=== PATIENT | male | born 1980 | race African-American/Black ===

== ENCOUNTER 2016-08-22 11:35 | Emergency (ER) | payer OTHER ==
[~2016-08-22] VITALS: Ht 172.7 cm; Wt 68.5 kg
[~2016-08-22 11:35] MED LIST: AUGMENTIN875 MG PO; DEPAKOTE; DEPAKOTE ER (E500 MG PO; DEPAKOTE ER500 MG PO; DEPAKOTE500 MG PO; KEPPRA250 MG PO; KEPPRA500 MG PO; LIBRIUM25 MG PO; NOHOMEMEDS; TYLENOL WITH C1 EACH PO
[2016-08-22 15:53] LABS: HEMATOCRIT 40.3 % (38.0-50.0); MCH 31.2 PG (29.0-34.0); MCHC 35.7 G/DL (30.0-36.0); MCV 87.2 FL (86-99); MEAN PLAT.VOLUME 8.7 uM^3 (9.0-12.4); PLATELET COUNT 285 K/uL (156-360); RBC DIS.WIDTH-CV 14.3 % (11.8-14.6); RBC DIS.WIDTH-SD 44.1 % (39-53); RED BLOOD COUNT 4.62 M/uL (4.00-5.50)
[2016-08-22 16:02] LABS: CHLORIDE 105 mEq/L (99-109); POTASSIUM 3.6 mEq/L (3.7-5.4); SODIUM 139 mEq/L (136-147)
[2016-08-22 16:03] LABS: AMYLASE 46 IU/L (1-118)
[2016-08-22 16:04] LABS: GLUCOSE 93 mg/dL (70-99)
[2016-08-22 16:05] LABS: ANION GAP 12 MEQ/L (2-14)
[2016-08-22 16:06] LABS: TOTAL BILIRUBIN 0.5 mg/dL (0.0-1.0)
[2016-08-22 16:07] LABS: ALKALINE PHOSPHATASE 63 IU/L (3-129); SERUM ETHYL ALCOHOL < 10 mg/dL
[2016-08-22 16:08] LABS: GFR ESTIMATE (CALCULATED) > 59 mL/min/
[2016-08-22 16:09] LABS: UREA NITROGEN (BUN) 9 mg/dL (9-23)
[2016-08-22 16:11] LABS: LIPASE 22 U/L (1.0-51.0)
[2016-08-22] MEDS ORDERED: KEPPRA500 MG PO (16:44)
[2016-08-22] MEDS ORDERED: THIAMINE HCL100 MG PO (16:45)
[2016-08-22] MEDS ORDERED: ATIVAN2 MG PO (16:45)
[2016-08-22 17:09] VITALS: BP 136/93
== END 2016-08-22 17:12 | disposition home or self-care (01) ==
LOC: EME 11:35 → RME 11:35
PROVIDERS: Physician Assistant
DX: R56.9 Unspecified convulsions (principal); Z76.0 Encounter for issue of repeat prescription; F10.239 Alcohol dependence with withdrawal, unspecified; I10 Essential (primary) hypertension; Z87.820 Personal history of traumatic brain injury; F17.200 Nicotine dependence, unspecified, uncomplicated
CPT/HCPCS: 80053; 82150; 83690; 85027; 99281; 99284; G0480; J2060; J2405; J7030

== ENCOUNTER 2016-09-03 02:49 | Inpatient (IN) | payer OTHER ==
[~2016-09-03] VITALS: Ht 172.7 cm; Wt 65.3 kg
[~2016-09-03 02:49] MED LIST changes: +ATIVAN2 MG PO; +THIAMINE HCL100 MG PO
[2016-09-03] MEDS ORDERED: ZOFRAN4 MG PO (03:14)
[2016-09-03 03:33] LABS: HEMATOCRIT 41.3 % (38.0-50.0); MCH 31.5 PG (29.0-34.0); MCHC 36.6 G/DL (30.0-36.0); MCV 86.2 FL (86-99); MEAN PLAT.VOLUME 8.5 uM^3 (9.0-12.4); PLATELET COUNT 277 K/uL (156-360); RBC DIS.WIDTH-CV 14.5 % (11.8-14.6); RBC DIS.WIDTH-SD 45.1 % (39-53); RED BLOOD COUNT 4.79 M/uL (4.00-5.50); WHITE BLOOD COUNT 5.1 K/uL (4.1-10.2)
[2016-09-03 03:43] LABS: CHLORIDE 104 mEq/L (99-109); POTASSIUM 3.6 mEq/L (3.7-5.4); SODIUM 140 mEq/L (136-147)
[2016-09-03 03:44] LABS: GLUCOSE 110 mg/dL (70-99)
[2016-09-03 03:46] LABS: ANION GAP 16 MEQ/L (2-14)
[2016-09-03 03:48] LABS: GFR ESTIMATE (CALCULATED) > 59 mL/min/; SERUM ETHYL ALCOHOL 367 mg/dL
[2016-09-03 03:49] LABS: UREA NITROGEN (BUN) 5 mg/dL (9-23)
[2016-09-03 03:50] LABS: AMPHETAMINE NEGATIVE (500 ng/mL); BARBITURATES NEGATIVE (200 ng/mL); BENZODIAZEPINES NEGATIVE (150 ng/mL); COCAINE NEGATIVE (150 ng/mL); METHADONE NEGATIVE (200 ng/mL); METHAMPHETAMINE NEGATIVE (500 ng/mL); OPIATES (MORPHINE) NEGATIVE (100 ng/mL); OXYCODONE NEGATIVE (100 ng/mL); PHENCYCLIDINE NEGATIVE (25 ng/mL); PROPOXYPHENE NEGATIVE (300 ng/mL); THC CANNABINOIDS NEGATIVE (50 ng/mL); TRICYCLIC ANTIDEPRESSANTS NEGATIVE (300 ng/mL)
[2016-09-03 03:51] LABS: INTERNAL CONTROLS VALID? YES
[2016-09-03] MEDS ORDERED: LORAZEPAM2 MG PO (16:11)
[2016-09-03] MEDS ORDERED: THIAMINE HCL100 MG PO (16:12)
[2016-09-03] MEDS ORDERED: DEPAKOTE500 MG PO (19:55)
[2016-09-03 21:29] VITALS: BP 134/99
[2016-09-04 07:49] VITALS: BP 143/93
[2016-09-04 15:34] VITALS: BP 142/96
[2016-09-05 07:53] VITALS: BP 142/90
[2016-09-05 15:34] VITALS: BP 134/92
[2016-09-06 09:18] VITALS: BP 131/88
[2016-09-06 15:08] VITALS: BP 109/72
[2016-09-07 07:34] VITALS: BP 117/74
[2016-09-07] MEDS ORDERED: DIVALPROEX SOD500 MG PO (10:37)
[2016-09-07] MEDS ORDERED: LEVETIRACETAM500 MG PO (10:37)
== END 2016-09-07 12:33 | disposition home or self-care (01) | DRG 881 ==
LOC: EME → EDBD 02:49 → EDOF 16:24 → 1WEST 16:24
PROVIDERS: Emergency Medicine
DX: F32.9 Major depressive disorder, single episode, unspecified (principal); F10.239 Alcohol dependence with withdrawal, unspecified; F10.229 Alcohol dependence with intoxication, unspecified; Y90.8 Blood alcohol level of 240 mg/100 ml or more; I10 Essential (primary) hypertension; G40.909 Epilepsy, unspecified, not intractable, without status epilepticus; R45.851 Suicidal ideations
CPT/HCPCS: 80048; 85027; 90837; 97150 GO; 97165 GO; 99281; 99285; G0480

== ENCOUNTER 2016-09-13 22:38 | Inpatient (IN) | payer OTHER ==
[~2016-09-13] VITALS: Ht 182.9 cm; Wt 65.7 kg
[~2016-09-13 22:38] MED LIST changes: +DIVALPROEX SOD500 MG PO; +LEVETIRACETAM500 MG PO; +LORAZEPAM2 MG PO; +ZOFRAN4 MG PO
[2016-09-13 23:10] LABS: ADD MIUA? YES; BILIRUBIN NEGATIVE; BLOOD SMALL; COLOR YELLOW ((YELLOW)); GLUCOSE (STRIP) NEGATIVE; KETONES 5; LEUKOCYTES NEGATIVE; NITRITE NEGATIVE; PROTEIN (STRIP) 30; SPECIFIC GRAVITY 1.008 (1.000-1.030); UROBILINOGEN 0.2 MG/DL (0.2-1.0)
[2016-09-13 23:15] LABS: HEMATOCRIT 45.1 % (38.0-50.0); MCHC 35.9 G/DL (30.0-36.0); MCV 86.4 FL (86-99); MEAN PLAT.VOLUME 8.8 uM^3 (9.0-12.4); PLATELET COUNT 360 K/uL (156-360); RBC DIS.WIDTH-CV 14.3 % (11.8-14.6); RBC DIS.WIDTH-SD 45.4 % (39-53); RED BLOOD COUNT 5.22 M/uL (4.00-5.50); WHITE BLOOD COUNT 6.1 K/uL (4.1-10.2)
[2016-09-13 23:20] LABS: BACTERIA NONE SEEN /HPF; EPITHELIAL CELLS RARE /HPF; MUCUS TRACE /LPF; RED BLOOD CELLS 0-5 /HPF (0-5); UCUL ADDED? NO; WHITE BLOOD CELLS 0-5 /HPF (0-5)
[2016-09-13 23:21] LABS: AMPHETAMINE NEGATIVE (500 ng/mL); BARBITURATES NEGATIVE (200 ng/mL); BENZODIAZEPINES PRESUMPTIVE POSITIVE (150 ng/mL); COCAINE NEGATIVE (150 ng/mL); INTERNAL CONTROLS VALID? YES; METHADONE NEGATIVE (200 ng/mL); METHAMPHETAMINE NEGATIVE (500 ng/mL); OPIATES (MORPHINE) NEGATIVE (100 ng/mL); OXYCODONE NEGATIVE (100 ng/mL); PHENCYCLIDINE NEGATIVE (25 ng/mL); PROPOXYPHENE NEGATIVE (300 ng/mL); THC CANNABINOIDS NEGATIVE (50 ng/mL); TRICYCLIC ANTIDEPRESSANTS NEGATIVE (300 ng/mL)
[2016-09-13 23:22] LABS: ADD MEDTOX COMMENT Y
[2016-09-13 23:27] LABS: CHLORIDE 106 mEq/L (99-109); POTASSIUM 3.5 mEq/L (3.7-5.4); SODIUM 141 mEq/L (136-147)
[2016-09-13 23:29] LABS: GLUCOSE 92 mg/dL (70-99)
[2016-09-13 23:30] LABS: ANION GAP 14 MEQ/L (2-14)
[2016-09-13 23:32] LABS: SERUM ETHYL ALCOHOL 283 mg/dL
[2016-09-13 23:33] LABS: GFR ESTIMATE (CALCULATED) > 59 mL/min/
[2016-09-13 23:34] LABS: UREA NITROGEN (BUN) 4 mg/dL (9-23)
[2016-09-14 05:34] LABS: BENZODIAZEPINES QUANT VALUE 0 NG/ML
[2016-09-14 05:49] LABS: BENZODIAZEPINES, URINE SCREEN Negative (200 ng/mL)
[2016-09-14] MEDS ORDERED: LORAZEPAM2 MG PO (07:26)
[2016-09-14 09:26] VITALS: BP 145/92
[2016-09-14 15:29] VITALS: BP 125/81
[2016-09-15 07:58] VITALS: BP 150/75
[2016-09-15 11:44] VITALS: BP 125/58
[2016-09-15 15:36] VITALS: BP 118/73
[2016-09-16 07:52] VITALS: BP 124/87
[2016-09-16 15:45] VITALS: BP 135/84
[2016-09-17 07:47] VITALS: BP 127/85
[2016-09-17] MEDS ORDERED: CITALOPRAM HBR10 MG PO (09:52)
== END 2016-09-17 11:47 | disposition home or self-care (01) | DRG 881 ==
LOC: EME 22:38 → 1WEST 09-14 06:25 → EDOF 09-14 06:25 → 1WEST 09-14 09:22
PROVIDERS: Emergency Medicine
DX: F32.9 Major depressive disorder, single episode, unspecified (principal); G40.909 Epilepsy, unspecified, not intractable, without status epilepticus; F10.220 Alcohol dependence with intoxication, uncomplicated; Y90.8 Blood alcohol level of 240 mg/100 ml or more; R45.851 Suicidal ideations; I10 Essential (primary) hypertension
CPT/HCPCS: 72070; 80048; 80164; 81003; 84999; 85027; 90837; 97150 GO; 97166 GO; 99281; 99285; G0480

== ENCOUNTER 2016-10-02 22:35 | Emergency (ER) | payer OTHER ==
[~2016-10-02] VITALS: Ht 175.3 cm; Wt 65.8 kg
[~2016-10-02 22:35] MED LIST changes: +CITALOPRAM HBR10 MG PO
[2016-10-02 23:25] LABS: HEMATOCRIT 42.2 % (38.0-50.0); MCH 31.3 PG (29.0-34.0); MCHC 34.8 G/DL (30.0-36.0); MEAN PLAT.VOLUME 8.8 uM^3 (9.0-12.4); PLATELET COUNT 311 K/uL (156-360); RBC DIS.WIDTH-CV 13.2 % (11.8-14.6); RBC DIS.WIDTH-SD 43.7 % (39-53); RED BLOOD COUNT 4.69 M/uL (4.00-5.50)
[2016-10-02 23:34] LABS: CHLORIDE 105 mEq/L (99-109); POTASSIUM 3.6 mEq/L (3.7-5.4); SODIUM 140 mEq/L (136-147)
[2016-10-02 23:37] LABS: GLUCOSE 93 mg/dL (70-99)
[2016-10-02 23:38] LABS: ANION GAP 13 MEQ/L (2-14); TOTAL BILIRUBIN 0.4 mg/dL (0.0-1.0)
[2016-10-02 23:39] LABS: SERUM ETHYL ALCOHOL 303 mg/dL
[2016-10-02 23:40] LABS: GFR ESTIMATE (CALCULATED) > 59 mL/min/
[2016-10-02 23:41] LABS: ALKALINE PHOSPHATASE 47 IU/L (3-129)
[2016-10-02 23:42] LABS: UREA NITROGEN (BUN) 7 mg/dL (9-23)
[2016-10-02 23:44] LABS: SALICYLATE < 5.0 MG/DL (15-30)
[2016-10-03 06:19] LABS: BILIRUBIN NEGATIVE; BLOOD NEGATIVE; COLOR YELLOW ((YELLOW)); GLUCOSE (STRIP) NEGATIVE; KETONES 5; LEUKOCYTES NEGATIVE; NITRITE NEGATIVE; PROTEIN (STRIP) NEGATIVE; SPECIFIC GRAVITY 1.021 (1.000-1.030); UROBILINOGEN 0.2 MG/DL (0.2-1.0)
[2016-10-03 06:20] LABS: ADD MIUA? NO; UCUL ADDED? NO
[2016-10-03 06:31] LABS: THC CANNABINOIDS PRESUMPTIVE POSITIVE (50 ng/mL)
[2016-10-03 06:32] LABS: ADD MEDTOX COMMENT Y; AMPHETAMINE NEGATIVE (500 ng/mL); BARBITURATES NEGATIVE (200 ng/mL); BENZODIAZEPINES PRESUMPTIVE POSITIVE (150 ng/mL); COCAINE NEGATIVE (150 ng/mL); INTERNAL CONTROLS VALID? YES; METHADONE NEGATIVE (200 ng/mL); METHAMPHETAMINE NEGATIVE (500 ng/mL); OPIATES (MORPHINE) NEGATIVE (100 ng/mL); OXYCODONE NEGATIVE (100 ng/mL); PHENCYCLIDINE NEGATIVE (25 ng/mL); PROPOXYPHENE NEGATIVE (300 ng/mL); TRICYCLIC ANTIDEPRESSANTS NEGATIVE (300 ng/mL)
[2016-10-03 07:11] LABS: BENZODIAZEPINES QUANT VALUE 0 NG/ML
[2016-10-03 07:16] LABS: BENZODIAZEPINES, URINE SCREEN Negative (200 ng/mL)
[2016-10-03 11:00] VITALS: BP 115/79
== END 2016-10-03 11:04 | disposition home or self-care (01) ==
LOC: EME → EDBD 22:35 → EME 22:35
PROVIDERS: Emergency Medicine
DX: F33.8 Other recurrent depressive disorders (principal); F10.229 Alcohol dependence with intoxication, unspecified; Y90.8 Blood alcohol level of 240 mg/100 ml or more; R45.851 Suicidal ideations; I10 Essential (primary) hypertension; G40.89 Other seizures; Z87.820 Personal history of traumatic brain injury; F12.10 Cannabis abuse, uncomplicated; F17.200 Nicotine dependence, unspecified, uncomplicated
CPT/HCPCS: 80053; 80164; 81003; 84999; 85027; 90839; 99281; 99285; G0480; J7030

== ENCOUNTER 2016-10-21 23:45 | Emergency (ER) | payer OTHER ==
[~2016-10-21] VITALS: Ht 172.7 cm; Wt 71.2 kg
[2016-10-22 00:35] LABS: CHLORIDE 104 mEq/L (99-109); POTASSIUM 3.6 mEq/L (3.7-5.4); SODIUM 140 mEq/L (136-147)
[2016-10-22 00:37] LABS: GLUCOSE 90 mg/dL (70-99)
[2016-10-22 00:37] LABS: HEMATOCRIT 38.1 % (38.0-50.0); MCH 32.5 PG (29.0-34.0); MCV 90.5 FL (86-99); RBC DIS.WIDTH-CV 13.2 % (11.8-14.6); RBC DIS.WIDTH-SD 44.1 % (39-53); RED BLOOD COUNT 4.21 M/uL (4.00-5.50)
[2016-10-22 00:38] LABS: ANION GAP 15 MEQ/L (2-14)
[2016-10-22 00:40] LABS: SERUM ETHYL ALCOHOL 323 mg/dL
[2016-10-22 00:41] LABS: GFR ESTIMATE (CALCULATED) > 59 mL/min/
[2016-10-22 00:43] LABS: UREA NITROGEN (BUN) 5 mg/dL (9-23)
[2016-10-22 00:44] LABS: SALICYLATE < 5.0 MG/DL (15-30)
[2016-10-22 00:46] LABS: AMPHETAMINE NEGATIVE (500 ng/mL); BARBITURATES NEGATIVE (200 ng/mL); BENZODIAZEPINES NEGATIVE (150 ng/mL); COCAINE NEGATIVE (150 ng/mL); INTERNAL CONTROLS VALID? YES; METHADONE NEGATIVE (200 ng/mL); METHAMPHETAMINE NEGATIVE (500 ng/mL); OPIATES (MORPHINE) NEGATIVE (100 ng/mL); OXYCODONE NEGATIVE (100 ng/mL); PHENCYCLIDINE NEGATIVE (25 ng/mL); PROPOXYPHENE NEGATIVE (300 ng/mL); THC CANNABINOIDS NEGATIVE (50 ng/mL); TRICYCLIC ANTIDEPRESSANTS NEGATIVE (300 ng/mL)
[2016-10-22 01:23] LABS: MEAN PLAT.VOLUME 8.9 uM^3 (9.0-12.4); PLAT.SUFFICIENCY ADEQUATE; PLATELET COUNT 204 K/uL (156-360)
[2016-10-22 11:41] VITALS: BP 115/77
== END 2016-10-22 11:41 | disposition home or self-care (01) ==
LOC: EME 23:45
PROVIDERS: Emergency Medicine
DX: F32.9 Major depressive disorder, single episode, unspecified (principal); F10.10 Alcohol abuse, uncomplicated; R45.851 Suicidal ideations; Y90.8 Blood alcohol level of 240 mg/100 ml or more; Z87.820 Personal history of traumatic brain injury; I10 Essential (primary) hypertension; R56.9 Unspecified convulsions; F17.200 Nicotine dependence, unspecified, uncomplicated
CPT/HCPCS: 80048; 85027; 90837; 99281; 99285; G0480; J1630; J2060

== ENCOUNTER 2016-11-05 21:52 | Emergency (ER) | payer OTHER ==
[~2016-11-05] VITALS: Ht 167.6 cm; Wt 68.0 kg
[2016-11-05 22:38] LABS: HEMATOCRIT 43.9 % (38.0-50.0); MCHC 35.3 G/DL (30.0-36.0); MCV 90.5 FL (86-99); MEAN PLAT.VOLUME 8.5 uM^3 (9.0-12.4); PLATELET COUNT 398 K/uL (156-360); RBC DIS.WIDTH-CV 12.8 % (11.8-14.6); RBC DIS.WIDTH-SD 42.3 % (39-53); RED BLOOD COUNT 4.85 M/uL (4.00-5.50); WHITE BLOOD COUNT 7.6 K/uL (4.1-10.2)
[2016-11-05 22:39] LABS: CHLORIDE 103 mEq/L (99-109); POTASSIUM 4.1 mEq/L (3.7-5.4); SODIUM 138 mEq/L (136-147)
[2016-11-05 22:41] LABS: AMPHETAMINE NEGATIVE (500 ng/mL); BARBITURATES NEGATIVE (200 ng/mL); BENZODIAZEPINES NEGATIVE (150 ng/mL); COCAINE NEGATIVE (150 ng/mL); INTERNAL CONTROLS VALID? YES; METHADONE NEGATIVE (200 ng/mL); METHAMPHETAMINE NEGATIVE (500 ng/mL); OPIATES (MORPHINE) NEGATIVE (100 ng/mL); OXYCODONE NEGATIVE (100 ng/mL); PHENCYCLIDINE NEGATIVE (25 ng/mL); PROPOXYPHENE NEGATIVE (300 ng/mL); THC CANNABINOIDS NEGATIVE (50 ng/mL); TRICYCLIC ANTIDEPRESSANTS NEGATIVE (300 ng/mL)
[2016-11-05 22:41] LABS: GLUCOSE 93 mg/dL (70-99)
[2016-11-05 22:42] LABS: ANION GAP 16 MEQ/L (2-14)
[2016-11-05 22:43] LABS: TOTAL BILIRUBIN 0.2 mg/dL (0.0-1.0)
[2016-11-05 22:44] LABS: SERUM ETHYL ALCOHOL 352 mg/dL
[2016-11-05 22:45] LABS: ALKALINE PHOSPHATASE 59 IU/L (3-129); GFR ESTIMATE (CALCULATED) > 59 mL/min/
[2016-11-05 22:47] LABS: UREA NITROGEN (BUN) 11 mg/dL (9-23)
[2016-11-05 22:48] LABS: SALICYLATE < 5.0 MG/DL (15-30)
[2016-11-06 08:39] VITALS: BP 98/64
== END 2016-11-06 08:52 | disposition home or self-care (01) ==
LOC: EME → EDBD 21:52 → EME 11-06 08:52
PROVIDERS: Emergency Medicine
DX: F10.229 Alcohol dependence with intoxication, unspecified (principal); F33.8 Other recurrent depressive disorders; F17.200 Nicotine dependence, unspecified, uncomplicated; Z59.0 Homelessness; Y90.8 Blood alcohol level of 240 mg/100 ml or more
CPT/HCPCS: 80053; 85027; 90837; 99281; 99285; G0480; J1630; J2060

== ENCOUNTER 2016-11-14 08:58 | Observation (INO) | payer OTHER ==
[~2016-11-14] VITALS: Ht 170.2 cm; Wt 60.5 kg
[2016-11-14 09:47] LABS: MCH 32.7 PG (29.0-34.0); MCHC 35.5 G/DL (30.0-36.0); MCV 92.2 FL (86-99); RBC DIS.WIDTH-CV 13.1 % (11.8-14.6); RBC DIS.WIDTH-SD 44.2 % (39-53); RED BLOOD COUNT 4.34 M/uL (4.00-5.50)
[2016-11-14 09:49] LABS: WHITE BLOOD COUNT 14.9 K/uL (4.1-10.2)
[2016-11-14 09:53] LABS: CHLORIDE 104 mEq/L (99-109); POTASSIUM 3.8 mEq/L (3.7-5.4); SODIUM 141 mEq/L (136-147)
[2016-11-14 09:55] LABS: GLUCOSE 115 mg/dL (70-99)
[2016-11-14 09:56] LABS: ANION GAP 18 MEQ/L (2-14)
[2016-11-14 09:58] LABS: SERUM ETHYL ALCOHOL 44 mg/dL
[2016-11-14 09:59] LABS: GFR ESTIMATE (CALCULATED) > 59 mL/min/
[2016-11-14 10:00] LABS: UREA NITROGEN (BUN) 5 mg/dL (9-23)
[2016-11-14 10:49] LABS: ANISOCYTOSIS 1+; EOSINOPHIL (%) 0 % (0-5); IMMATURE GRANULOCYTE (%) 0.7 % (0.0-0.7); IMMATURE GRANULOCYTE COUNT 0.1 K/uL; INSTRUMENT ABS NEUTROPHIL CT 13.7 K/uL; LYMPHOCYTE COUNT 0.4 K/uL (1.0-2.8); MACROCYTES 1+; MEAN PLAT.VOLUME 8.3 uM^3 (9.0-12.4); MONOCYTE (%) 4.6 % (3-12); MONOCYTE COUNT 0.7 K/uL (0-0.8); NEUTROPHIL COUNT 13.7 K/uL (1.8-6.4); PLAT.SUFFICIENCY ADEQUATE; STOMATOCYTES 1+; TARGET CELLS 1+
[2016-11-14 10:52] LABS: PLATELET COUNT 255 K/uL (156-360)
[2016-11-14 11:04] LABS: ADD MIUA? NO; BILIRUBIN NEGATIVE; BLOOD NEGATIVE; COLOR YELLOW ((YELLOW)); GLUCOSE (STRIP) NEGATIVE; KETONES 20; LEUKOCYTES NEGATIVE; NITRITE NEGATIVE; PROTEIN (STRIP) 30; SPECIFIC GRAVITY 1.015 (1.000-1.030); UROBILINOGEN 0.2 MG/DL (0.2-1.0)
[2016-11-14 11:12] LABS: AMPHETAMINE NEGATIVE (500 ng/mL); BARBITURATES NEGATIVE (200 ng/mL); BENZODIAZEPINES NEGATIVE (150 ng/mL); COCAINE NEGATIVE (150 ng/mL); INTERNAL CONTROLS VALID? YES; METHADONE NEGATIVE (200 ng/mL); METHAMPHETAMINE NEGATIVE (500 ng/mL); OPIATES (MORPHINE) NEGATIVE (100 ng/mL); OXYCODONE NEGATIVE (100 ng/mL); PHENCYCLIDINE NEGATIVE (25 ng/mL); PROPOXYPHENE NEGATIVE (300 ng/mL); THC CANNABINOIDS NEGATIVE (50 ng/mL); TRICYCLIC ANTIDEPRESSANTS NEGATIVE (300 ng/mL)
[2016-11-14 15:37] VITALS: BP 119/82
[2016-11-14 20:18] VITALS: BP 128/78
[2016-11-15 01:07] VITALS: BP 117/69
[2016-11-15 04:18] VITALS: BP 122/75
[2016-11-15 06:25] LABS: ANION GAP 10 MEQ/L (2-14); CHLORIDE 103 MEQ/L (99-109); GFR ESTIMATE (CALCULATED) > 59 mL/min/; GLUCOSE 100 mg/dL (70-99); POTASSIUM 3.2 MEQ/L (3.7-5.4); SAMPLE HEMOLYSIS CHECK 0; SAMPLE ICTERIC CHECK 0; SAMPLE LIPEMIA CHECK 0; SODIUM 137 MEQ/L (136-147); UREA NITROGEN (BUN) 4 mg/dL (9-23)
[2016-11-15 07:39] LABS: INTERNAL CONTROL VALID? YES
[2016-11-15 07:40] LABS: INTERNAL CONTROL VALID? YES
[2016-11-15 08:07] VITALS: BP 131/93
[2016-11-15 11:31] VITALS: BP 140/87
[2016-11-15] MEDS ORDERED: CEFDINIR300 MG PO (11:47)
== END 2016-11-15 12:10 | disposition home or self-care (01) ==
LOC: EME 08:58 → 5SOUTH 12:30 → EDOF 12:30 → 5SOUTH 12:30
PROVIDERS: Emergency Medicine; Hospitalist
DX: J13 Pneumonia due to Streptococcus pneumoniae (principal); F10.220 Alcohol dependence with intoxication, uncomplicated; F10.230 Alcohol dependence with withdrawal, uncomplicated; F32.9 Major depressive disorder, single episode, unspecified; G40.909 Epilepsy, unspecified, not intractable, without status epilepticus
CPT/HCPCS: 71010; 80048; 80048 91; 81003; 85025; 85027; 87040; 87070; 87205; 87449; 94640; 94640 76; 94799; 99202; 99281; 99285; G0378; G0480; J0456; J0696; J2060; J2405; J2765; J7030; J7050

== ENCOUNTER 2016-11-17 03:16 | Emergency (ER) | payer OTHER ==
[~2016-11-17] VITALS: Ht 167.6 cm; Wt 63.5 kg
[~2016-11-17 03:16] MED LIST changes: +CEFDINIR300 MG PO
[2016-11-17 04:03] LABS: ADD MIUA? NO; BILIRUBIN NEGATIVE; BLOOD NEGATIVE; COLOR STRAW ((YELLOW)); GLUCOSE (STRIP) NEGATIVE; KETONES NEGATIVE; LEUKOCYTES NEGATIVE; NITRITE NEGATIVE; PROTEIN (STRIP) NEGATIVE; SPECIFIC GRAVITY 1.006 (1.000-1.030); UCUL ADDED? NO; UROBILINOGEN 0.2 MG/DL (0.2-1.0)
[2016-11-17 04:16] LABS: AMPHETAMINE NEGATIVE (500 ng/mL); BARBITURATES NEGATIVE (200 ng/mL); BENZODIAZEPINES NEGATIVE (150 ng/mL); COCAINE NEGATIVE (150 ng/mL); INTERNAL CONTROLS VALID? YES; METHADONE NEGATIVE (200 ng/mL); METHAMPHETAMINE NEGATIVE (500 ng/mL); OPIATES (MORPHINE) NEGATIVE (100 ng/mL); OXYCODONE NEGATIVE (100 ng/mL); PHENCYCLIDINE NEGATIVE (25 ng/mL); PROPOXYPHENE NEGATIVE (300 ng/mL); THC CANNABINOIDS NEGATIVE (50 ng/mL); TRICYCLIC ANTIDEPRESSANTS NEGATIVE (300 ng/mL)
[2016-11-17 04:17] LABS: HEMATOCRIT 36.9 % (38.0-50.0); MCH 32.6 PG (29.0-34.0); MCHC 35.8 G/DL (30.0-36.0); MCV 91.1 FL (86-99); MEAN PLAT.VOLUME 8.8 uM^3 (9.0-12.4); PLATELET COUNT 238 K/uL (156-360); RBC DIS.WIDTH-CV 12.6 % (11.8-14.6); RED BLOOD COUNT 4.05 M/uL (4.00-5.50); WHITE BLOOD COUNT 5.8 K/uL (4.1-10.2)
[2016-11-17 04:22] LABS: CHLORIDE 106 mEq/L (99-109); POTASSIUM 3.1 mEq/L (3.7-5.4); SODIUM 142 mEq/L (136-147)
[2016-11-17 04:24] LABS: GLUCOSE 90 mg/dL (70-99)
[2016-11-17 04:25] LABS: ANION GAP 15 MEQ/L (2-14)
[2016-11-17 04:27] LABS: SERUM ETHYL ALCOHOL 268 mg/dL
[2016-11-17 04:28] LABS: GFR ESTIMATE (CALCULATED) > 59 mL/min/
[2016-11-17 04:29] LABS: UREA NITROGEN (BUN) 4 mg/dL (9-23)
[2016-11-17] MEDS ORDERED: LIBRIUM25 MG PO (12:13)
[2016-11-17] MEDS ORDERED: THIAMINE HCL100 MG PO (12:13)
[2016-11-17 12:27] VITALS: BP 122/86
== END 2016-11-17 12:28 | disposition home or self-care (01) ==
LOC: EME → EDBD 03:16 → EME 12:28
PROVIDERS: Emergency Medicine
DX: F10.239 Alcohol dependence with withdrawal, unspecified (principal); R45.851 Suicidal ideations; F17.210 Nicotine dependence, cigarettes, uncomplicated; F12.90 Cannabis use, unspecified, uncomplicated; I10 Essential (primary) hypertension; F32.9 Major depressive disorder, single episode, unspecified; Z91.5 Personal history of self-harm; J44.0 Chronic obstructive pulmonary disease with (acute) lower respiratory infection; J18.9 Pneumonia, unspecified organism; J45.909 Unspecified asthma, uncomplicated
CPT/HCPCS: 71010; 80048; 81003; 85027; 90839; 94640; 99281; 99285; G0480

== ENCOUNTER 2016-11-19 23:59 | Inpatient (IN) | payer OTHER ==
[~2016-11-19] VITALS: Ht 170.2 cm; Wt 64.4 kg
[2016-11-20 00:32] LABS: HEMATOCRIT 37.7 % (38.0-50.0); MCH 33.1 PG (29.0-34.0); MCHC 35.8 G/DL (30.0-36.0); MCV 92.4 FL (86-99); MEAN PLAT.VOLUME 8.8 uM^3 (9.0-12.4); PLATELET COUNT 276 K/uL (156-360); RBC DIS.WIDTH-CV 12.9 % (11.8-14.6); RED BLOOD COUNT 4.08 M/uL (4.00-5.50); WHITE BLOOD COUNT 6.6 K/uL (4.1-10.2)
[2016-11-20 00:45] LABS: CHLORIDE 105 mEq/L (99-109); POTASSIUM 3.4 mEq/L (3.7-5.4); SODIUM 140 mEq/L (136-147)
[2016-11-20 00:47] LABS: GLUCOSE 86 mg/dL (70-99)
[2016-11-20 00:48] LABS: ANION GAP 12 MEQ/L (2-14)
[2016-11-20 00:49] LABS: TOTAL BILIRUBIN 0.2 mg/dL (0.0-1.0)
[2016-11-20 00:49] LABS: ADD MIUA? NO; BILIRUBIN NEGATIVE; BLOOD NEGATIVE; COLOR STRAW ((YELLOW)); GLUCOSE (STRIP) NEGATIVE; KETONES NEGATIVE; LEUKOCYTES NEGATIVE; NITRITE NEGATIVE; PROTEIN (STRIP) NEGATIVE; SPECIFIC GRAVITY 1.006 (1.000-1.030); UCUL ADDED? NO; UROBILINOGEN 0.2 MG/DL (0.2-1.0)
[2016-11-20 00:50] LABS: SERUM ETHYL ALCOHOL 319 mg/dL
[2016-11-20 00:51] LABS: ALKALINE PHOSPHATASE 56 IU/L (3-129); GFR ESTIMATE (CALCULATED) > 59 mL/min/
[2016-11-20 00:52] LABS: UREA NITROGEN (BUN) 10 mg/dL (9-23)
[2016-11-20 00:54] LABS: LIPASE 85 U/L (1.0-51.0)
[2016-11-20 00:58] LABS: AMPHETAMINE NEGATIVE (500 ng/mL); BARBITURATES NEGATIVE (200 ng/mL); BENZODIAZEPINES NEGATIVE (150 ng/mL); COCAINE NEGATIVE (150 ng/mL); INTERNAL CONTROLS VALID? YES; METHADONE NEGATIVE (200 ng/mL); METHAMPHETAMINE NEGATIVE (500 ng/mL); OPIATES (MORPHINE) NEGATIVE (100 ng/mL); OXYCODONE NEGATIVE (100 ng/mL); PHENCYCLIDINE NEGATIVE (25 ng/mL); PROPOXYPHENE NEGATIVE (300 ng/mL); THC CANNABINOIDS NEGATIVE (50 ng/mL); TRICYCLIC ANTIDEPRESSANTS NEGATIVE (300 ng/mL)
[2016-11-20] MEDS ORDERED: CITALOPRAM HBR10 MG PO (20:43)
[2016-11-20] MEDS ORDERED: VENTOLIN HFA18 GM IH (20:44)
[2016-11-20] MEDS ORDERED: LORAZEPAM2 MG PO (20:44)
[2016-11-20] MEDS ORDERED: AUGMENTIN875 MG PO (22:07)
[2016-11-20 22:34] VITALS: BP 130/94
[2016-11-21 07:45] VITALS: BP 123/76
[2016-11-21 11:39] VITALS: BP 131/89
[2016-11-21 15:32] VITALS: BP 134/89
[2016-11-22 08:03] VITALS: BP 121/75
[2016-11-22 15:46] VITALS: BP 97/64
[2016-11-23 07:42] VITALS: BP 122/76
[2016-11-23 15:19] VITALS: BP 105/63
[2016-11-24 07:43] VITALS: BP 126/78
[2016-11-24] MEDS ORDERED: CITALOPRAM HBR20 MG PO (10:38)
== END 2016-11-24 12:36 | disposition home or self-care (01) | DRG 897 ==
LOC: EME → EDBD 23:59 → EME 23:59 → EDOF 11-20 19:58 → 1WEST 11-20 19:58
PROVIDERS: Emergency Medicine
DX: F10.129 Alcohol abuse with intoxication, unspecified (principal); R45.851 Suicidal ideations; I10 Essential (primary) hypertension; F32.9 Major depressive disorder, single episode, unspecified; G40.909 Epilepsy, unspecified, not intractable, without status epilepticus
CPT/HCPCS: 80053; 80164; 81003; 83690; 83735; 85027; 90839; 93005; 97150 GO; 97165 GO; 99202; 99281; 99285; G0480; J1953; J2060; J3411; J7030; J7050

== ENCOUNTER 2016-12-06 21:49 | Emergency (ER) | payer OTHER ==
[~2016-12-06] VITALS: Ht 167.6 cm; Wt 66.9 kg
[~2016-12-06 21:49] MED LIST changes: +CITALOPRAM HBR20 MG PO; +VENTOLIN HFA18 GM IH
[2016-12-06] MEDS ORDERED: KEPPRA500 MG PO (22:17)
[2016-12-07 00:15] LABS: HEMATOCRIT 44.4 % (38.0-50.0); MCH 32.5 PG (29.0-34.0); MCHC 35.8 G/DL (30.0-36.0); MCV 90.8 FL (86-99); MEAN PLAT.VOLUME 10.1 uM^3 (9.0-12.4); PLATELET COUNT 214 K/uL (156-360); RBC DIS.WIDTH-CV 12.6 % (11.8-14.6); RED BLOOD COUNT 4.89 M/uL (4.00-5.50); WHITE BLOOD COUNT 4.7 K/uL (4.1-10.2)
[2016-12-07 00:17] LABS: CHLORIDE 104 mEq/L (99-109); POTASSIUM 3.8 mEq/L (3.7-5.4); SODIUM 141 mEq/L (136-147)
[2016-12-07 00:19] LABS: GLUCOSE 110 mg/dL (70-99)
[2016-12-07 00:20] LABS: ANION GAP 17 MEQ/L (2-14)
[2016-12-07 00:21] LABS: TOTAL BILIRUBIN 0.8 mg/dL (0.0-1.0)
[2016-12-07 00:22] LABS: SERUM ETHYL ALCOHOL 369 mg/dL
[2016-12-07 00:23] LABS: GFR ESTIMATE (CALCULATED) > 59 mL/min/
[2016-12-07 00:24] LABS: ALKALINE PHOSPHATASE 71 IU/L (3-129)
[2016-12-07 00:25] LABS: UREA NITROGEN (BUN) 12 mg/dL (9-23)
[2016-12-07 00:26] LABS: SALICYLATE < 5.0 MG/DL (15-30)
[2016-12-07 00:27] LABS: CREATINE KINASE 331 IU/L (1-294); TOTAL CK 331 IU/L (1-294)
[2016-12-07 00:39] LABS: CK-MB 1.7 ng/mL (0.0-4.9)
[2016-12-07 06:02] LABS: ADD MIUA? YES; BILIRUBIN NEGATIVE; BLOOD SMALL; COLOR YELLOW ((YELLOW)); GLUCOSE (STRIP) NEGATIVE; KETONES NEGATIVE; LEUKOCYTES NEGATIVE; NITRITE NEGATIVE; PROTEIN (STRIP) 30; SPECIFIC GRAVITY 1.013 (1.000-1.030); UROBILINOGEN 0.2 MG/DL (0.2-1.0)
[2016-12-07 06:27] LABS: BACTERIA NONE SEEN /HPF; EPITHELIAL CELLS NONE SEEN /HPF; HYALINE CASTS 15-20 /LPF; MUCUS TRACE /LPF; RED BLOOD CELLS 0-5 /HPF (0-5); WHITE BLOOD CELLS 0-5 /HPF (0-5)
[2016-12-07 06:33] LABS: ADD MEDTOX COMMENT Y; AMPHETAMINE NEGATIVE (500 ng/mL); BARBITURATES NEGATIVE (200 ng/mL); BENZODIAZEPINES PRESUMPTIVE POSITIVE (150 ng/mL); COCAINE NEGATIVE (150 ng/mL); INTERNAL CONTROLS VALID? YES; METHADONE NEGATIVE (200 ng/mL); METHAMPHETAMINE NEGATIVE (500 ng/mL); OPIATES (MORPHINE) NEGATIVE (100 ng/mL); OXYCODONE NEGATIVE (100 ng/mL); PHENCYCLIDINE NEGATIVE (25 ng/mL); PROPOXYPHENE NEGATIVE (300 ng/mL); THC CANNABINOIDS NEGATIVE (50 ng/mL); TRICYCLIC ANTIDEPRESSANTS NEGATIVE (300 ng/mL)
[2016-12-07 07:43] LABS: BENZODIAZEPINES, URINE SCREEN POSITIVE (200 ng/mL)
[2016-12-07 12:41] VITALS: BP 99/71
== END 2016-12-07 12:54 | disposition home or self-care (01) ==
LOC: EME 21:49
PROVIDERS: Emergency Medicine
DX: F32.9 Major depressive disorder, single episode, unspecified (principal); F10.129 Alcohol abuse with intoxication, unspecified; Y90.8 Blood alcohol level of 240 mg/100 ml or more; R45.851 Suicidal ideations; G40.909 Epilepsy, unspecified, not intractable, without status epilepticus; J45.909 Unspecified asthma, uncomplicated; Z59.0 Homelessness; F17.200 Nicotine dependence, unspecified, uncomplicated
CPT/HCPCS: 70450; 72125; 80053; 80164; 81003; 82550; 82553; 84999; 85027; 90839; 99281; 99285; G0480; J1200; J1630; J1953; J7030; J7050

== ENCOUNTER 2016-12-22 20:29 | Emergency (ER) | payer OTHER ==
[~2016-12-22] VITALS: Ht 175.3 cm; Wt 66.8 kg
[2016-12-22 21:30] LABS: HEMATOCRIT 38.6 % (38.0-50.0); MCH 32.8 PG (29.0-34.0); MCHC 36.3 G/DL (30.0-36.0); MCV 90.4 FL (86-99); MEAN PLAT.VOLUME 8.4 uM^3 (9.0-12.4); PLATELET COUNT 216 K/uL (156-360); RBC DIS.WIDTH-CV 12.9 % (11.8-14.6); RBC DIS.WIDTH-SD 41.9 % (39-53); RED BLOOD COUNT 4.27 M/uL (4.00-5.50); WHITE BLOOD COUNT 4.5 K/uL (4.1-10.2)
[2016-12-22 21:46] LABS: CHLORIDE 104 mEq/L (99-109); POTASSIUM 3.8 mEq/L (3.7-5.4); SODIUM 137 mEq/L (136-147)
[2016-12-22 21:48] LABS: GLUCOSE 85 mg/dL (70-99)
[2016-12-22 21:50] LABS: ANION GAP 10 MEQ/L (2-14)
[2016-12-22 21:51] LABS: SERUM ETHYL ALCOHOL 350 mg/dL
[2016-12-22 21:52] LABS: GFR ESTIMATE (CALCULATED) > 59 mL/min/
[2016-12-22 21:53] LABS: UREA NITROGEN (BUN) 10 mg/dL (9-23)
[2016-12-23 00:25] LABS: ADD MIUA? NO; BILIRUBIN NEGATIVE; BLOOD NEGATIVE; COLOR YELLOW ((YELLOW)); GLUCOSE (STRIP) NEGATIVE; KETONES NEGATIVE; LEUKOCYTES NEGATIVE; NITRITE NEGATIVE; PROTEIN (STRIP) NEGATIVE; SPECIFIC GRAVITY 1.006 (1.000-1.030); UCUL ADDED? NO; UROBILINOGEN 0.2 MG/DL (0.2-1.0)
[2016-12-23 04:56] VITALS: BP 120/80
== END 2016-12-23 04:57 | disposition home or self-care (01) ==
LOC: EME 20:29
PROVIDERS: Emergency Medicine
DX: F10.129 Alcohol abuse with intoxication, unspecified (principal); G40.909 Epilepsy, unspecified, not intractable, without status epilepticus; F17.200 Nicotine dependence, unspecified, uncomplicated; J45.909 Unspecified asthma, uncomplicated
CPT/HCPCS: 70450; 73080; 80048; 81003; 83735; 85027; 99281; 99284; G0480; J3411; J7030

== ENCOUNTER 2016-12-25 04:50 | Emergency (ER) | payer OTHER ==
[~2016-12-25] VITALS: Ht 175.3 cm; Wt 62.5 kg
[2016-12-25 05:45] LABS: HEMATOCRIT 39.4 % (38.0-50.0); MCH 32.7 PG (29.0-34.0); MCHC 35.8 G/DL (30.0-36.0); MCV 91.4 FL (86-99); MEAN PLAT.VOLUME 8.8 uM^3 (9.0-12.4); NRBC (%) 0.9 /100 WBC (0-0); PLATELET COUNT 212 K/uL (156-360); RBC DIS.WIDTH-CV 13.3 % (11.8-14.6); RBC DIS.WIDTH-SD 44.3 % (39-53); RED BLOOD COUNT 4.31 M/uL (4.00-5.50); WHITE BLOOD COUNT 4.5 K/uL (4.1-10.2)
[2016-12-25 05:51] LABS: CHLORIDE 105 mEq/L (99-109); POTASSIUM 3.6 mEq/L (3.7-5.4); SODIUM 140 mEq/L (136-147)
[2016-12-25 05:53] LABS: GLUCOSE 88 mg/dL (70-99)
[2016-12-25 05:54] LABS: ANION GAP 15 MEQ/L (2-14)
[2016-12-25 05:55] LABS: TOTAL BILIRUBIN 0.8 mg/dL (0.0-1.0)
[2016-12-25 05:56] LABS: SERUM ETHYL ALCOHOL 318 mg/dL
[2016-12-25 05:57] LABS: GFR ESTIMATE (CALCULATED) > 59 mL/min/
[2016-12-25 05:58] LABS: ALKALINE PHOSPHATASE 81 IU/L (3-129)
[2016-12-25 05:59] LABS: UREA NITROGEN (BUN) 8 mg/dL (9-23)
[2016-12-25 06:00] LABS: SALICYLATE < 5.0 MG/DL (15-30)
[2016-12-25 06:02] LABS: LIPASE 41 U/L (1.0-51.0)
[2016-12-25 06:16] LABS: ADD MIUA? NO; BILIRUBIN NEGATIVE; BLOOD NEGATIVE; COLOR YELLOW ((YELLOW)); GLUCOSE (STRIP) NEGATIVE; KETONES NEGATIVE; LEUKOCYTES NEGATIVE; NITRITE NEGATIVE; PROTEIN (STRIP) 30; SPECIFIC GRAVITY 1.013 (1.000-1.030); UCUL ADDED? NO; UROBILINOGEN 0.2 MG/DL (0.2-1.0)
[2016-12-25 06:27] LABS: AMPHETAMINE NEGATIVE (500 ng/mL); BARBITURATES NEGATIVE (200 ng/mL); BENZODIAZEPINES PRESUMPTIVE POSITIVE (150 ng/mL); COCAINE NEGATIVE (150 ng/mL); INTERNAL CONTROLS VALID? YES; METHADONE NEGATIVE (200 ng/mL); METHAMPHETAMINE NEGATIVE (500 ng/mL); OPIATES (MORPHINE) NEGATIVE (100 ng/mL); OXYCODONE NEGATIVE (100 ng/mL); PHENCYCLIDINE NEGATIVE (25 ng/mL); PROPOXYPHENE NEGATIVE (300 ng/mL); THC CANNABINOIDS PRESUMPTIVE POSITIVE (50 ng/mL); TRICYCLIC ANTIDEPRESSANTS NEGATIVE (300 ng/mL)
[2016-12-25 06:28] LABS: ADD MEDTOX COMMENT Y
[2016-12-25 07:34] LABS: BENZODIAZEPINES, URINE SCREEN POSITIVE (200 ng/mL)
[2016-12-26 05:38] LABS: CHLORIDE 103 mEq/L (99-109); POTASSIUM 4.2 mEq/L (3.7-5.4); SODIUM 136 mEq/L (136-147)
[2016-12-26 05:40] LABS: GLUCOSE 125 mg/dL (70-99)
[2016-12-26 05:42] LABS: ANION GAP 24 MEQ/L (2-14)
[2016-12-26 05:44] LABS: ALKALINE PHOSPHATASE 83 IU/L (3-129); GFR ESTIMATE (CALCULATED) > 59 mL/min/
[2016-12-26 05:45] LABS: UREA NITROGEN (BUN) 11 mg/dL (9-23)
[2016-12-26 05:48] LABS: MCH 32.6 PG (29.0-34.0); MCHC 33.8 G/DL (30.0-36.0); MCV 96.6 FL (86-99); MEAN PLAT.VOLUME 10.7 uM^3 (9.0-12.4); NRBC (%) 0.3 /100 WBC (0-0); PLATELET COUNT 152 K/uL (156-360); RBC DIS.WIDTH-CV 13.2 % (11.8-14.6); RBC DIS.WIDTH-SD 47.2 % (39-53); RED BLOOD COUNT 4.66 M/uL (4.00-5.50); WHITE BLOOD COUNT 6.3 K/uL (4.1-10.2)
[2016-12-26 06:03] LABS: TOTAL BILIRUBIN 1.3 mg/dL (0.0-1.0)
[2016-12-26 11:44] LABS: ANION GAP 12 MEQ/L (2-14); CHLORIDE 101 MEQ/L (99-109); GFR ESTIMATE (CALCULATED) > 59 mL/min/; GLUCOSE 103 mg/dL (70-99); POTASSIUM 3.8 MEQ/L (3.7-5.4); SAMPLE HEMOLYSIS CHECK 0; SAMPLE ICTERIC CHECK 0; SAMPLE LIPEMIA CHECK 0; SODIUM 137 MEQ/L (136-147); UREA NITROGEN (BUN) 10 mg/dL (9-23)
[2016-12-26 12:13] VITALS: BP 129/82
== END 2016-12-26 12:17 | disposition home or self-care (01) ==
LOC: EME 04:50
PROVIDERS: Emergency Medicine
DX: F32.9 Major depressive disorder, single episode, unspecified (principal); F12.10 Cannabis abuse, uncomplicated; G40.909 Epilepsy, unspecified, not intractable, without status epilepticus; J45.909 Unspecified asthma, uncomplicated; F17.200 Nicotine dependence, unspecified, uncomplicated
CPT/HCPCS: 80048 91; 80053; 81003; 83690; 84999; 85027; 90837; 99281; 99285; G0480; J1953; J2060; J7050

== ENCOUNTER 2017-01-11 21:24 | Emergency (ER) | payer OTHER ==
[~2017-01-11] VITALS: Ht 175.3 cm; Wt 62.1 kg
[2017-01-11 22:18] LABS: AMPHETAMINE NEGATIVE (500 ng/mL); BARBITURATES NEGATIVE (200 ng/mL); BENZODIAZEPINES NEGATIVE (150 ng/mL); COCAINE NEGATIVE (150 ng/mL); METHADONE NEGATIVE (200 ng/mL); METHAMPHETAMINE NEGATIVE (500 ng/mL); OPIATES (MORPHINE) NEGATIVE (100 ng/mL); OXYCODONE NEGATIVE (100 ng/mL); PHENCYCLIDINE NEGATIVE (25 ng/mL); PROPOXYPHENE NEGATIVE (300 ng/mL); THC CANNABINOIDS NEGATIVE (50 ng/mL); TRICYCLIC ANTIDEPRESSANTS NEGATIVE (300 ng/mL)
[2017-01-11 22:19] LABS: INTERNAL CONTROLS VALID? YES
[2017-01-11 22:47] LABS: HEMATOCRIT 40.7 % (38.0-50.0); MCH 32.9 PG (29.0-34.0); MCHC 35.9 G/DL (30.0-36.0); MEAN PLAT.VOLUME 8.9 uM^3 (9.0-12.4); RBC DIS.WIDTH-SD 43.7 % (39-53); RED BLOOD COUNT 4.44 M/uL (4.00-5.50); WHITE BLOOD COUNT 4.4 K/uL (4.1-10.2)
[2017-01-11 22:48] LABS: MCV 91.7 FL (86-99); PLATELET COUNT 227 K/uL (156-360)
[2017-01-11 22:50] LABS: CHLORIDE 105 mEq/L (99-109); POTASSIUM 3.8 mEq/L (3.7-5.4); SODIUM 141 mEq/L (136-147)
[2017-01-11 22:52] LABS: GLUCOSE 110 mg/dL (70-99)
[2017-01-11 22:53] LABS: ANION GAP 15 MEQ/L (2-14)
[2017-01-11 22:55] LABS: SERUM ETHYL ALCOHOL 383 mg/dL
[2017-01-11 22:56] LABS: GFR ESTIMATE (CALCULATED) > 59 mL/min/
[2017-01-11 22:57] LABS: UREA NITROGEN (BUN) 6 mg/dL (9-23)
[2017-01-12] MEDS ORDERED: DEPAKOTE500 MG PO (10:09)
[2017-01-12 10:23] VITALS: BP 107/81
== END 2017-01-12 10:23 | disposition home or self-care (01) ==
LOC: EME → EDBD 21:24 → EME 01-12 10:23
DX: R45.851 Suicidal ideations (principal); F10.229 Alcohol dependence with intoxication, unspecified; Y90.8 Blood alcohol level of 240 mg/100 ml or more; R56.9 Unspecified convulsions; J45.909 Unspecified asthma, uncomplicated; F17.200 Nicotine dependence, unspecified, uncomplicated; Z91.5 Personal history of self-harm; Z87.820 Personal history of traumatic brain injury; R45.1 Restlessness and agitation; F32.9 Major depressive disorder, single episode, unspecified; Z78.1 Physical restraint status
CPT/HCPCS: 80048; 85027; 90839; 99281; 99285; G0480; J1630; J2060

== ENCOUNTER 2017-01-20 23:09 | Emergency (ER) | payer OTHER ==
[~2017-01-20] VITALS: Ht 177.8 cm; Wt 62.0 kg
[2017-01-21 00:08] LABS: HEMATOCRIT 39.7 % (38.0-50.0); MCH 33.2 PG (29.0-34.0); MCHC 36.3 G/DL (30.0-36.0); MCV 91.5 FL (86-99); MEAN PLAT.VOLUME 8.6 uM^3 (9.0-12.4); NRBC (%) 0.5 /100 WBC (0-0); PLATELET COUNT 259 K/uL (156-360); RBC DIS.WIDTH-CV 12.8 % (11.8-14.6); RBC DIS.WIDTH-SD 43.3 % (39-53); RED BLOOD COUNT 4.34 M/uL (4.00-5.50); WHITE BLOOD COUNT 3.9 K/uL (4.1-10.2)
[2017-01-21 00:16] LABS: CHLORIDE 104 mEq/L (99-109); POTASSIUM 3.6 mEq/L (3.7-5.4); SODIUM 139 mEq/L (136-147)
[2017-01-21 00:17] LABS: GLUCOSE 97 mg/dL (70-99)
[2017-01-21 00:19] LABS: ANION GAP 15 MEQ/L (2-14)
[2017-01-21 00:21] LABS: GFR ESTIMATE (CALCULATED) > 59 mL/min/; SERUM ETHYL ALCOHOL 356 mg/dL
[2017-01-21 00:22] LABS: UREA NITROGEN (BUN) 5 mg/dL (9-23)
[2017-01-21 00:24] LABS: LIPASE 32 U/L (1.0-51.0)
[2017-01-21 00:41] LABS: EOSINOPHIL (%) 1.5 % (0-5); EOSINOPHIL COUNT 0.1 K/uL (0-0.3); INSTRUMENT ABS NEUTROPHIL CT 0.7 K/uL; LYMPHOCYTE COUNT 2.8 K/uL (1.0-2.8); MONOCYTE (%) 7.5 % (3-12); MONOCYTE COUNT 0.3 K/uL (0-0.8); NEUTROPHIL (%) 19.1 % (45-76); NEUTROPHIL COUNT 0.7 K/uL (1.8-6.4)
[2017-01-21 10:14] VITALS: BP 112/77
== END 2017-01-21 10:15 | disposition home or self-care (01) ==
LOC: EME → EDBD 23:09 → EME 23:09
PROVIDERS: Emergency Medicine
DX: F10.129 Alcohol abuse with intoxication, unspecified (principal); Y90.8 Blood alcohol level of 240 mg/100 ml or more; S00.93XA Contusion of unspecified part of head, initial encounter; W18.30XA Fall on same level, unspecified, initial encounter; J45.909 Unspecified asthma, uncomplicated; F17.200 Nicotine dependence, unspecified, uncomplicated
CPT/HCPCS: 70450; 72125; 80048; 83690; 85025; 99281; 99285; G0480; J1630

== ENCOUNTER 2017-01-21 18:00 | Observation (INO) | payer OTHER ==
[~2017-01-21] VITALS: Ht 167.6 cm; Wt 64.9 kg
[2017-01-21 19:49] LABS: HEMATOCRIT 43.1 % (38.0-50.0); MCV 91.7 FL (86-99); RBC DIS.WIDTH-CV 12.7 % (11.8-14.6); RBC DIS.WIDTH-SD 42.8 % (39-53)
[2017-01-21 20:01] LABS: CHLORIDE 101 mEq/L (99-109); POTASSIUM 4.2 mEq/L (3.7-5.4); SODIUM 139 mEq/L (136-147)
[2017-01-21 20:02] LABS: GLUCOSE 104 mg/dL (70-99)
[2017-01-21 20:04] LABS: ANION GAP 20 MEQ/L (2-14)
[2017-01-21 20:05] LABS: SERUM ETHYL ALCOHOL < 10 mg/dL
[2017-01-21 20:07] LABS: GFR ESTIMATE (CALCULATED) > 59 mL/min/; UREA NITROGEN (BUN) 6 mg/dL (9-23)
[2017-01-21 20:34] LABS: PLAT.SUFFICIENCY ADEQUATE; PLATELET CLUMPS PRESENT - PLATELET COUNT APPEARS ADQ.; PLATELET COUNT UNABLE TO REPORT K/uL (156-360)
[2017-01-21 23:49] LABS: MAGNESIUM 1.7 mg/dL (1.3-2.7)
[2017-01-22 00:04] VITALS: BP 130/83
[2017-01-22 02:14] LABS: TOTAL BILIRUBIN 0.7 mg/dL (0.0-1.0)
[2017-01-22 02:15] LABS: ALKALINE PHOSPHATASE 101 IU/L (3-129)
[2017-01-22 02:18] LABS: DIRECT BILIRUBIN 0.3 mg/dL (0.0-0.3)
[2017-01-22 04:21] VITALS: BP 102/68
[2017-01-22 06:31] VITALS: BP 97/63
[2017-01-22 08:34] VITALS: BP 116/83
== END 2017-01-22 10:50 | disposition home or self-care (01) ==
LOC: EME 18:00 → 5WEST 22:50 → EDOF 22:50 → 5WEST 23:51
PROVIDERS: Emergency Medicine
DX: G40.801 Other epilepsy, not intractable, with status epilepticus (principal); F10.239 Alcohol dependence with withdrawal, unspecified; S09.90XA Unspecified injury of head, initial encounter; F32.9 Major depressive disorder, single episode, unspecified; Z87.820 Personal history of traumatic brain injury; F17.200 Nicotine dependence, unspecified, uncomplicated
CPT/HCPCS: 80048 91; 80076; 80164; 83735; 85027; 99281; 99285; G0378; G0480; J2405; J3360; J3411; J7030

== ENCOUNTER 2017-02-04 15:55 | Emergency (ER) | payer OTHER ==
[~2017-02-04] VITALS: Ht 172.7 cm; Wt 62.7 kg
[2017-02-04 17:08] LABS: EOSINOPHIL (%) 1.3 % (0-5); EOSINOPHIL COUNT 0.1 K/uL (0-0.3); IMMATURE GRANULOCYTE (%) 0.2 % (0.0-0.7); INSTRUMENT ABS NEUTROPHIL CT 1.9 K/uL; LYMPHOCYTE COUNT 2.9 K/uL (1.0-2.8); MCH 33.2 PG (29.0-34.0); MCHC 35.6 G/DL (30.0-36.0); MCV 93.2 FL (86-99); MEAN PLAT.VOLUME 9.1 uM^3 (9.0-12.4); MONOCYTE (%) 7.5 % (3-12); MONOCYTE COUNT 0.4 K/uL (0-0.8); NEUTROPHIL (%) 35.2 % (45-76); NEUTROPHIL COUNT 1.9 K/uL (1.8-6.4); PLATELET COUNT 251 K/uL (156-360); RBC DIS.WIDTH-CV 12.9 % (11.8-14.6); RBC DIS.WIDTH-SD 44.2 % (39-53); WHITE BLOOD COUNT 5.3 K/uL (4.1-10.2)
[2017-02-04 17:15] LABS: CHLORIDE 100 mEq/L (99-109)
[2017-02-04 17:16] LABS: POTASSIUM 3.9 mEq/L (3.7-5.4); SODIUM 138 mEq/L (136-147)
[2017-02-04 17:17] LABS: GLUCOSE 91 mg/dL (70-99)
[2017-02-04 17:19] LABS: ANION GAP 19 MEQ/L (2-14)
[2017-02-04 17:20] LABS: SERUM ETHYL ALCOHOL 324 mg/dL
[2017-02-04 17:21] LABS: GFR ESTIMATE (CALCULATED) > 59 mL/min/
[2017-02-04 17:23] LABS: UREA NITROGEN (BUN) 7 mg/dL (9-23)
[2017-02-04 17:24] LABS: SALICYLATE < 5.0 MG/DL (15-30)
[2017-02-04 19:02] LABS: ADD MEDTOX COMMENT Y; AMPHETAMINE NEGATIVE (500 ng/mL); BARBITURATES NEGATIVE (200 ng/mL); BENZODIAZEPINES PRESUMPTIVE POSITIVE (150 ng/mL); COCAINE NEGATIVE (150 ng/mL); INTERNAL CONTROLS VALID? YES; METHADONE NEGATIVE (200 ng/mL); METHAMPHETAMINE NEGATIVE (500 ng/mL); OPIATES (MORPHINE) NEGATIVE (100 ng/mL); OXYCODONE NEGATIVE (100 ng/mL); PHENCYCLIDINE NEGATIVE (25 ng/mL); PROPOXYPHENE NEGATIVE (300 ng/mL); THC CANNABINOIDS NEGATIVE (50 ng/mL); TRICYCLIC ANTIDEPRESSANTS NEGATIVE (300 ng/mL)
[2017-02-04 19:37] LABS: BENZODIAZEPINES, URINE SCREEN POSITIVE (200 ng/mL)
[2017-02-05 03:00] VITALS: BP 120/89
== END 2017-02-05 04:38 | disposition home or self-care (01) ==
LOC: EME 15:55
PROVIDERS: Emergency Medicine
DX: F10.129 Alcohol abuse with intoxication, unspecified (principal); Y90.8 Blood alcohol level of 240 mg/100 ml or more; I10 Essential (primary) hypertension; J45.909 Unspecified asthma, uncomplicated; F17.200 Nicotine dependence, unspecified, uncomplicated
CPT/HCPCS: 80048; 84999; 85025; 99281; 99285; G0480; J1630; J2060

== ENCOUNTER 2017-02-24 04:37 | Emergency (ER) | payer OTHER ==
[~2017-02-24] VITALS: Ht 172.7 cm; Wt 57.2 kg
[2017-02-24 05:34] LABS: HEMATOCRIT 40.6 % (38.0-50.0); MCH 33.2 PG (29.0-34.0); MCV 92.3 FL (86-99); MEAN PLAT.VOLUME 8.9 uM^3 (9.0-12.4); PLATELET COUNT 209 K/uL (156-360); RBC DIS.WIDTH-CV 12.9 % (11.8-14.6); RBC DIS.WIDTH-SD 43.7 % (39-53); WHITE BLOOD COUNT 3.8 K/uL (4.1-10.2)
[2017-02-24 05:41] LABS: CHLORIDE 103 mEq/L (99-109); POTASSIUM 3.9 mEq/L (3.7-5.4); SODIUM 137 mEq/L (136-147)
[2017-02-24 05:43] LABS: GLUCOSE 82 mg/dL (70-99)
[2017-02-24 05:44] LABS: ANION GAP 21 MEQ/L (2-14)
[2017-02-24 05:45] LABS: TOTAL BILIRUBIN 0.8 mg/dL (0.0-1.0)
[2017-02-24 05:46] LABS: SERUM ETHYL ALCOHOL < 10 mg/dL
[2017-02-24 05:47] LABS: ALKALINE PHOSPHATASE 99 IU/L (3-129); GFR ESTIMATE (CALCULATED) > 59 mL/min/
[2017-02-24 05:48] LABS: UREA NITROGEN (BUN) 12 mg/dL (9-23)
[2017-02-24 05:50] LABS: CREATINE KINASE 126 IU/L (1-294); LIPASE 27 U/L (1.0-51.0); TOTAL CK 126 IU/L (1-294)
[2017-02-24 06:02] LABS: CK-MB 1.5 ng/mL (0.0-4.9)
[2017-02-24 06:37] LABS: CREATININE 0.7 mg/dL (0.6-1.3); POTASSIUM 3.9 mEq/L (3.7-5.4)
[2017-02-24 06:56] VITALS: BP 124/88
[2017-02-24] MEDS ORDERED: DEPAKOTE500 MG PO (10:28)
[2017-02-24] MEDS ORDERED: KEPPRA500 MG PO (10:28)
== END 2017-02-24 06:58 | disposition home or self-care (01) ==
LOC: EME → EDBD 04:37 → EME 06:58
PROVIDERS: Emergency Medicine
DX: G40.909 Epilepsy, unspecified, not intractable, without status epilepticus (principal); F10.10 Alcohol abuse, uncomplicated; F17.200 Nicotine dependence, unspecified, uncomplicated; Y90.0 Blood alcohol level of less than 20 mg/100 ml
CPT/HCPCS: 80047; 80053; 80164; 82550; 82553; 83690; 85027; 93005; 99281; 99285; G0480; J7030

== ENCOUNTER 2017-02-24 09:57 | Emergency (ER) | payer OTHER ==
[~2017-02-24] VITALS: Ht 167.6 cm; Wt 62.0 kg
[2017-02-24] MEDS ORDERED: KEPPRA500 MG PO (10:28)
[2017-02-24] MEDS ORDERED: DEPAKOTE500 MG PO (10:28)
[2017-02-24 10:56] VITALS: BP 110/77
== END 2017-02-24 10:57 | disposition home or self-care (01) ==
LOC: EME 09:57
DX: G40.909 Epilepsy, unspecified, not intractable, without status epilepticus (principal); F10.10 Alcohol abuse, uncomplicated; Z76.0 Encounter for issue of repeat prescription
CPT/HCPCS: 99281; 99284

== ENCOUNTER 2017-04-01 14:24 | Observation (INO) | payer OTHER ==
[~2017-04-01] VITALS: Ht 167.6 cm; Wt 57.2 kg
[2017-04-01 15:10] LABS: EOSINOPHIL (%) 0.1 % (0-5); HEMATOCRIT 39.6 % (38.0-50.0); IMMATURE GRANULOCYTE (%) 0.4 % (0.0-0.7); INSTRUMENT ABS NEUTROPHIL CT 7.9 K/uL; LYMPHOCYTE COUNT 0.5 K/uL (1.0-2.8); MCH 33.6 PG (29.0-34.0); MCHC 35.9 G/DL (30.0-36.0); MCV 93.6 FL (86-99); MONOCYTE (%) 5.8 % (3-12); MONOCYTE COUNT 0.5 K/uL (0-0.8); NEUTROPHIL (%) 88.2 % (45-76); NEUTROPHIL COUNT 7.9 K/uL (1.8-6.4); RBC DIS.WIDTH-CV 13.1 % (11.8-14.6); RBC DIS.WIDTH-SD 44.6 % (39-53); RED BLOOD COUNT 4.23 M/uL (4.00-5.50); WHITE BLOOD COUNT 8.9 K/uL (4.1-10.2)
[2017-04-01 15:21] LABS: CHLORIDE 100 mEq/L (99-109); POTASSIUM 4.3 mEq/L (3.7-5.4); SODIUM 137 mEq/L (136-147)
[2017-04-01 15:22] LABS: GLUCOSE 141 mg/dL (70-99)
[2017-04-01 15:24] LABS: ANION GAP 21 MEQ/L (2-14)
[2017-04-01 15:26] LABS: GFR ESTIMATE (CALCULATED) > 59 mL/min/
[2017-04-01 15:27] LABS: UREA NITROGEN (BUN) 4 mg/dL (9-23)
[2017-04-01 15:50] LABS: IMM.PLATELET FRACTION 15.8 (1-7); PLATELET CLUMPS PRESENT - PLATELET COUNTS APPEARS DECREASED; PLATELET COUNT UNABLE TO REPORT K/uL (156-360)
[2017-04-01 19:54] VITALS: BP 118/85
[2017-04-01 22:32] LABS: ALKALINE PHOSPHATASE 108 IU/L (3-129); ANION GAP 18 MEQ/L (2-14); CHLORIDE 102 MEQ/L (99-109); GFR ESTIMATE (CALCULATED) > 59 mL/min/; GLUCOSE 113 mg/dL (70-99); POTASSIUM 3.6 MEQ/L (3.7-5.4); SAMPLE HEMOLYSIS CHECK 0; SAMPLE ICTERIC CHECK 0; SAMPLE LIPEMIA CHECK 0; SODIUM 137 MEQ/L (136-147); TOTAL BILIRUBIN 1.3 MG/DL (0.0-1.0); UREA NITROGEN (BUN) 4 mg/dL (9-23)
[2017-04-02 01:14] VITALS: BP 124/83
[2017-04-02 10:00] VITALS: BP 127/85
[2017-04-02 11:36] VITALS: BP 125/84
[2017-04-02 13:43] LABS: HEMATOCRIT 36.2 % (38.0-50.0); MCH 33.7 PG (29.0-34.0); MCHC 35.1 G/DL (30.0-36.0); MEAN PLAT.VOLUME 9.6 uM^3 (9.0-12.4); RBC DIS.WIDTH-SD 46.2 % (39-53); RED BLOOD COUNT 3.77 M/uL (4.00-5.50); WHITE BLOOD COUNT 9.2 K/uL (4.1-10.2)
[2017-04-02 13:46] LABS: PLATELET COUNT 179 K/uL (156-360)
[2017-04-02 14:07] LABS: ALKALINE PHOSPHATASE 98 IU/L (3-129); ANION GAP 10 MEQ/L (2-14); CHLORIDE 103 MEQ/L (99-109); GFR ESTIMATE (CALCULATED) > 59 mL/min/; GLUCOSE 89 mg/dL (70-99); POTASSIUM 3.5 MEQ/L (3.7-5.4); SAMPLE HEMOLYSIS CHECK 0; SAMPLE ICTERIC CHECK 0; SAMPLE LIPEMIA CHECK 0; SODIUM 137 MEQ/L (136-147); TOTAL BILIRUBIN 1.5 MG/DL (0.0-1.0); UREA NITROGEN (BUN) 4 mg/dL (9-23)
[2017-04-02 15:39] VITALS: BP 112/78
[2017-04-02] MEDS ORDERED: CHEWABLE-VITE1 EACH PO (16:27)
[2017-04-02 19:39] VITALS: BP 128/84
[2017-04-03 00:15] VITALS: BP 128/67
[2017-04-03 04:04] VITALS: BP 112/78
[2017-04-03 08:11] VITALS: BP 141/97
[2017-04-03] MEDS ORDERED: FOLIC ACID1 MG PO (11:24)
[2017-04-03] MEDS ORDERED: Thiamine,Vitamin B1 PO ×2 (11:24→11:27)
[2017-04-03] MEDS ORDERED: NICOTINE PATCH1 EAC2 TD (11:24)
[2017-04-03] MEDS ORDERED: KEPPRA500 MG PO (11:26)
[2017-04-03 11:58] LABS: ANION GAP 15 MEQ/L (2-14); CHLORIDE 99 MEQ/L (99-109); GFR ESTIMATE (CALCULATED) > 59 mL/min/; GLUCOSE 81 mg/dL (70-99); MAGNESIUM 1.8 mg/dl (1.3-2.7); POTASSIUM 3.3 MEQ/L (3.7-5.4); SAMPLE HEMOLYSIS CHECK 0; SAMPLE ICTERIC CHECK 0; SAMPLE LIPEMIA CHECK 0; SODIUM 138 MEQ/L (136-147); UREA NITROGEN (BUN) 3 mg/dL (9-23)
== END 2017-04-03 12:13 | disposition home or self-care (01) ==
LOC: EME 14:24 → 5WEST 17:36 → EDOF 17:36 → ENRESERV 17:44 → 5WEST 19:36
PROVIDERS: Emergency Medicine; Hospitalist; Internal Medicine
DX: G40.909 Epilepsy, unspecified, not intractable, without status epilepticus (principal); T42.5X6A Underdosing of mixed antiepileptics, initial encounter; Z91.128 Patient's intentional underdosing of medication regimen for other reason; Z87.820 Personal history of traumatic brain injury; Z91.5 Personal history of self-harm; F10.20 Alcohol dependence, uncomplicated; F32.9 Major depressive disorder, single episode, unspecified; I10 Essential (primary) hypertension; R73.9 Hyperglycemia, unspecified; F17.210 Nicotine dependence, cigarettes, uncomplicated
CPT/HCPCS: 80048; 80053; 80164; 80306 90; 83735; 85025; 85027; 95819; 99281; 99285; G0378; J1644; J1953; J2060; J3411; J3475; J7030; J7050

== ENCOUNTER 2017-04-04 02:51 | Emergency (ER) | payer OTHER ==
[~2017-04-04] VITALS: Ht 167.6 cm; Wt 72.0 kg
[~2017-04-04 02:51] MED LIST changes: +CHEWABLE-VITE1 EACH PO; +FOLIC ACID1 MG PO; +NICOTINE PATCH1 EAC2 TD; +Thiamine,Vitamin B1 PO
[2017-04-04 05:04] LABS: MCH 34.4 PG (29.0-34.0); MEAN PLAT.VOLUME 9.1 uM^3 (9.0-12.4); PLATELET COUNT 200 K/uL (156-360); RBC DIS.WIDTH-CV 12.5 % (11.8-14.6); RBC DIS.WIDTH-SD 42.8 % (39-53); RED BLOOD COUNT 3.55 M/uL (4.00-5.50); WHITE BLOOD COUNT 6.3 K/uL (4.1-10.2)
[2017-04-04 05:16] LABS: CHLORIDE 104 mEq/L (99-109); POTASSIUM 2.9 mEq/L (3.7-5.4); SODIUM 141 mEq/L (136-147)
[2017-04-04 05:18] LABS: GLUCOSE 90 mg/dL (70-99)
[2017-04-04 05:20] LABS: ANION GAP 18 MEQ/L (2-14)
[2017-04-04 05:21] LABS: SERUM ETHYL ALCOHOL 151 mg/dL
[2017-04-04 05:22] LABS: GFR ESTIMATE (CALCULATED) > 59 mL/min/
[2017-04-04 05:23] LABS: UREA NITROGEN (BUN) 2 mg/dL (9-23)
[2017-04-04 06:04] LABS: ADD MEDTOX COMMENT Y; AMPHETAMINE NEGATIVE (500 ng/mL); BARBITURATES NEGATIVE (200 ng/mL); BENZODIAZEPINES PRESUMPTIVE POSITIVE (150 ng/mL); COCAINE NEGATIVE (150 ng/mL); INTERNAL CONTROLS VALID? YES; METHADONE NEGATIVE (200 ng/mL); METHAMPHETAMINE NEGATIVE (500 ng/mL); OPIATES (MORPHINE) NEGATIVE (100 ng/mL); OXYCODONE NEGATIVE (100 ng/mL); PHENCYCLIDINE PRESUMPTIVE POSITIVE (25 ng/mL); PROPOXYPHENE NEGATIVE (300 ng/mL); THC CANNABINOIDS NEGATIVE (50 ng/mL); TRICYCLIC ANTIDEPRESSANTS NEGATIVE (300 ng/mL)
[2017-04-04 06:41] LABS: ADD MIUA? NO; BILIRUBIN NEGATIVE; BLOOD NEGATIVE; COLOR YELLOW ((YELLOW)); GLUCOSE (STRIP) NEGATIVE; KETONES NEGATIVE; LEUKOCYTES NEGATIVE; NITRITE NEGATIVE; PROTEIN (STRIP) NEGATIVE; SPECIFIC GRAVITY 1.005 (1.000-1.030)
[2017-04-04 06:42] LABS: UCUL ADDED? NO
[2017-04-04 07:01] LABS: BENZODIAZEPINES, URINE SCREEN POSITIVE (200 ng/mL)
[2017-04-04 10:32] VITALS: BP 101/72
== END 2017-04-04 10:38 | disposition home or self-care (01) ==
LOC: EME 02:51
PROVIDERS: Emergency Medicine
DX: F32.9 Major depressive disorder, single episode, unspecified (principal); F10.229 Alcohol dependence with intoxication, unspecified; E87.6 Hypokalemia; Z91.5 Personal history of self-harm; Y90.6 Blood alcohol level of 120-199 mg/100 ml; F17.200 Nicotine dependence, unspecified, uncomplicated
CPT/HCPCS: 80048; 80164; 81003; 84999; 85027; 90839; 99281; 99285; G0480; J3480

== ENCOUNTER 2017-04-20 19:20 | Inpatient (IN) | payer OTHER ==
[~2017-04-20] VITALS: Ht 167.6 cm; Wt 58.7 kg
[2017-04-20 20:27] LABS: HEMATOCRIT 37.7 % (38.0-50.0); MCH 33.9 PG (29.0-34.0); MCHC 36.1 G/DL (30.0-36.0); PLATELET COUNT 231 K/uL (156-360); RBC DIS.WIDTH-CV 12.4 % (11.8-14.6); RBC DIS.WIDTH-SD 43.3 % (39-53); RED BLOOD COUNT 4.01 M/uL (4.00-5.50); WHITE BLOOD COUNT 4.1 K/uL (4.1-10.2)
[2017-04-20 20:35] LABS: CHLORIDE 103 mEq/L (99-109); POTASSIUM 3.8 mEq/L (3.7-5.4); SODIUM 139 mEq/L (136-147)
[2017-04-20 20:37] LABS: GLUCOSE 90 mg/dL (70-99)
[2017-04-20 20:38] LABS: ANION GAP 13 MEQ/L (2-14)
[2017-04-20 20:40] LABS: SERUM ETHYL ALCOHOL 276 mg/dL
[2017-04-20 20:41] LABS: GFR ESTIMATE (CALCULATED) > 59 mL/min/
[2017-04-20 20:42] LABS: UREA NITROGEN (BUN) 6 mg/dL (9-23)
[2017-04-21 07:13] LABS: AMPHETAMINE NEGATIVE (500 ng/mL); BARBITURATES NEGATIVE (200 ng/mL); BENZODIAZEPINES PRESUMPTIVE POSITIVE (150 ng/mL); COCAINE NEGATIVE (150 ng/mL); INTERNAL CONTROLS VALID? YES; METHADONE NEGATIVE (200 ng/mL); METHAMPHETAMINE NEGATIVE (500 ng/mL); OPIATES (MORPHINE) NEGATIVE (100 ng/mL); OXYCODONE NEGATIVE (100 ng/mL); PHENCYCLIDINE PRESUMPTIVE POSITIVE (25 ng/mL); PROPOXYPHENE NEGATIVE (300 ng/mL); THC CANNABINOIDS PRESUMPTIVE POSITIVE (50 ng/mL); TRICYCLIC ANTIDEPRESSANTS NEGATIVE (300 ng/mL)
[2017-04-21 07:14] LABS: ADD MEDTOX COMMENT Y
[2017-04-21 07:53] LABS: BENZODIAZEPINES, URINE SCREEN POSITIVE (200 ng/mL)
[2017-04-21 09:44] VITALS: BP 124/87
[2017-04-21 09:45] VITALS: BP 124/87
[2017-04-21 15:45] VITALS: BP 122/79
[2017-04-22 07:52] VITALS: BP 121/75
[2017-04-22 15:38] VITALS: BP 113/71
[2017-04-23 07:57] VITALS: BP 123/72
[2017-04-23 15:56] VITALS: BP 131/83
[2017-04-24 07:36] VITALS: BP 100/60
[2017-04-24 16:12] VITALS: BP 112/69
[2017-04-25 07:50] VITALS: BP 131/86
[2017-04-25] MEDS ORDERED: TRIPLE ANTIB28.35 GM TP (09:36)
[2017-04-25] MEDS ORDERED: KEPPRA500 MG PO (09:36)
[2017-04-25] MEDS ORDERED: DEPAKOTE500 MG PO (09:36)
== END 2017-04-25 12:45 | disposition other institution (70) | DRG 897 ==
LOC: EME → EDBD 19:20 → EDOF 04-21 07:28 → 1WEST 04-21 07:28 → EDOF 04-21 07:53 → ENRESERV 04-21 09:30 → 1WEST 04-21 09:39
PROVIDERS: Emergency Medicine
PROC: HZ2ZZZZ Detoxification Services for Substance Abuse Treatment (ICD-10-PCS; principal; 2017-04-21)
DX: F10.14 Alcohol abuse with alcohol-induced mood disorder (principal); R45.851 Suicidal ideations; F32.9 Major depressive disorder, single episode, unspecified; G47.00 Insomnia, unspecified; F10.129 Alcohol abuse with intoxication, unspecified; F41.9 Anxiety disorder, unspecified; F16.10 Hallucinogen abuse, uncomplicated; Y90.8 Blood alcohol level of 240 mg/100 ml or more; R09.02 Hypoxemia; G43.909 Migraine, unspecified, not intractable, without status migrainosus; J45.909 Unspecified asthma, uncomplicated; I10 Essential (primary) hypertension; F17.210 Nicotine dependence, cigarettes, uncomplicated; F12.90 Cannabis use, unspecified, uncomplicated; G40.909 Epilepsy, unspecified, not intractable, without status epilepticus; Z91.19 Patient's noncompliance with other medical treatment and regimen; Z91.14 Patient's other noncompliance with medication regimen; Z87.820 Personal history of traumatic brain injury
CPT/HCPCS: 71020; 80048; 84999; 85027; 90837; 99281; 99284; G0480; J1630; J2060; J2250

== ENCOUNTER 2017-06-07 04:34 | Emergency (ER) | payer OTHER ==
[~2017-06-07] VITALS: Ht 167.6 cm; Wt 66.9 kg
[~2017-06-07 04:34] MED LIST changes: +TRIPLE ANTIB28.35 GM TP
[2017-06-07 05:14] LABS: POINT-OF-CARE METER ID UU13113747
[2017-06-07 05:57] LABS: EOSINOPHIL (%) 5.4 % (0-5); EOSINOPHIL COUNT 0.2 K/uL (0-0.3); HEMATOCRIT 41.7 % (38.0-50.0); INSTRUMENT ABS NEUTROPHIL CT 1.2 K/uL; LYMPHOCYTE COUNT 1.3 K/uL (1.0-2.8); MCH 32.3 PG (29.0-34.0); MCHC 35.5 G/DL (30.0-36.0); MEAN PLAT.VOLUME 9.5 uM^3 (9.0-12.4); MONOCYTE (%) 8.8 % (3-12); MONOCYTE COUNT 0.3 K/uL (0-0.8); NEUTROPHIL (%) 41.1 % (45-76); NEUTROPHIL COUNT 1.2 K/uL (1.8-6.4); PLATELET COUNT 174 K/uL (156-360); RBC DIS.WIDTH-CV 11.8 % (11.8-14.6); RBC DIS.WIDTH-SD 39.3 % (39-53); RED BLOOD COUNT 4.58 M/uL (4.00-5.50)
[2017-06-07] MEDS ORDERED: LEVETIRACETAM500 MG PO (06:01)
[2017-06-07] MEDS ORDERED: DIVALPROEX SOD500 MG PO (06:01)
[2017-06-07] MEDS ORDERED: DEPAKOTE500 MG PO (06:03)
[2017-06-07] MEDS ORDERED: FOLIC ACID1 MG PO (06:04)
[2017-06-07] MEDS ORDERED: NICOTINE PATCH1 EAC2 TD (06:04)
[2017-06-07 06:07] LABS: CHLORIDE 100 mEq/L (99-109); POTASSIUM 3.5 mEq/L (3.7-5.4); SODIUM 138 mEq/L (136-147)
[2017-06-07 06:09] LABS: GLUCOSE 93 mg/dL (70-99)
[2017-06-07 06:10] LABS: ANION GAP 19 MEQ/L (2-14)
[2017-06-07 06:11] LABS: TOTAL BILIRUBIN 0.7 mg/dL (0.0-1.0)
[2017-06-07 06:12] LABS: ALKALINE PHOSPHATASE 65 IU/L (3-129); SERUM ETHYL ALCOHOL 66 mg/dL
[2017-06-07 06:13] LABS: GFR ESTIMATE (CALCULATED) > 59 mL/min/
[2017-06-07 06:14] LABS: UREA NITROGEN (BUN) 9 mg/dL (9-23)
[2017-06-07 06:16] LABS: CREATINE KINASE 210 IU/L (1-294); TOTAL CK 210 IU/L (1-294)
[2017-06-07 07:18] LABS: AMPHETAMINE NEGATIVE (500 ng/mL); BARBITURATES NEGATIVE (200 ng/mL); BENZODIAZEPINES NEGATIVE (150 ng/mL); COCAINE NEGATIVE (150 ng/mL); METHADONE NEGATIVE (200 ng/mL); METHAMPHETAMINE NEGATIVE (500 ng/mL); OPIATES (MORPHINE) NEGATIVE (100 ng/mL); OXYCODONE NEGATIVE (100 ng/mL); PHENCYCLIDINE NEGATIVE (25 ng/mL); PROPOXYPHENE NEGATIVE (300 ng/mL); THC CANNABINOIDS PRESUMPTIVE POSITIVE (50 ng/mL); TRICYCLIC ANTIDEPRESSANTS NEGATIVE (300 ng/mL)
[2017-06-07 07:19] LABS: ADD MEDTOX COMMENT Y; INTERNAL CONTROLS VALID? YES
[2017-06-07] MEDS ORDERED: DEPAKOTE ER500 MG PO (07:31)
[2017-06-07 09:00] VITALS: BP 119/80
== END 2017-06-07 09:27 | disposition home or self-care (01) ==
LOC: EME → EDBD 04:34 → EME 04:34
PROVIDERS: Emergency Medicine
DX: G40.909 Epilepsy, unspecified, not intractable, without status epilepticus (principal); F10.10 Alcohol abuse, uncomplicated; T42.6X6A Underdosing of other antiepileptic and sedative-hypnotic drugs, initial encounter; Z91.14 Patient's other noncompliance with medication regimen; R79.89 Other specified abnormal findings of blood chemistry; Y90.3 Blood alcohol level of 60-79 mg/100 ml; I10 Essential (primary) hypertension; J45.909 Unspecified asthma, uncomplicated; F17.200 Nicotine dependence, unspecified, uncomplicated; F32.9 Major depressive disorder, single episode, unspecified; Z91.5 Personal history of self-harm; Z87.820 Personal history of traumatic brain injury
CPT/HCPCS: 80053; 80164; 82550; 82553; 82948; 84999; 85025; 93005; 99281; 99285; G0480; J1953; J7030; J7050

== ENCOUNTER 2017-06-15 10:41 | Emergency (ER) | payer OTHER ==
[~2017-06-15] VITALS: Ht 167.6 cm; Wt 70.5 kg
[2017-06-15 13:37] LABS: HEMATOCRIT 42.9 % (38.0-50.0); MCH 32.9 PG (29.0-34.0); MCHC 35.9 G/DL (30.0-36.0); MCV 91.7 FL (86-99); MEAN PLAT.VOLUME 9.4 uM^3 (9.0-12.4); RBC DIS.WIDTH-CV 12.3 % (11.8-14.6); RBC DIS.WIDTH-SD 41.1 % (39-53); RED BLOOD COUNT 4.68 M/uL (4.00-5.50); WHITE BLOOD COUNT 3.8 K/uL (4.1-10.2)
[2017-06-15 13:39] LABS: PLATELET COUNT 233 K/uL (156-360)
[2017-06-15 13:49] LABS: CHLORIDE 104 mEq/L (99-109); SODIUM 140 mEq/L (136-147)
[2017-06-15 13:50] LABS: GLUCOSE 100 mg/dL (70-99)
[2017-06-15 13:52] LABS: ANION GAP 15 MEQ/L (2-14)
[2017-06-15 13:54] LABS: GFR ESTIMATE (CALCULATED) > 59 mL/min/
[2017-06-15 13:55] LABS: UREA NITROGEN (BUN) 6 mg/dL (9-23)
[2017-06-15] MEDS ORDERED: ZOFRAN ODT4 MG PO (14:19)
[2017-06-15] MEDS ORDERED: THIAMINE HCL100 MG PO (14:19)
[2017-06-15] MEDS ORDERED: LIBRIUM25 MG PO (14:19)
[2017-06-15 14:30] VITALS: BP 125/90
== END 2017-06-15 14:30 | disposition home or self-care (01) ==
LOC: EME 10:41
PROVIDERS: Nurse Practitioner Family
DX: R11.2 Nausea with vomiting, unspecified (principal); F10.239 Alcohol dependence with withdrawal, unspecified; I10 Essential (primary) hypertension; J45.909 Unspecified asthma, uncomplicated; F17.200 Nicotine dependence, unspecified, uncomplicated; R56.9 Unspecified convulsions; F32.9 Major depressive disorder, single episode, unspecified; Z87.820 Personal history of traumatic brain injury
CPT/HCPCS: 80048; 85027; 99281; 99284

== ENCOUNTER 2017-06-15 20:01 | Emergency (ER) | payer OTHER ==
[~2017-06-15] VITALS: Ht 170.2 cm; Wt 68.0 kg
[~2017-06-15 20:01] MED LIST changes: +ZOFRAN ODT4 MG PO
[2017-06-15 20:34] LABS: ADD MIUA? YES; BILIRUBIN NEGATIVE; BLOOD SMALL; COLOR COLORLESS ((YELLOW)); GLUCOSE (STRIP) NEGATIVE; KETONES NEGATIVE; LEUKOCYTES NEGATIVE; NITRITE NEGATIVE; PROTEIN (STRIP) NEGATIVE; SPECIFIC GRAVITY 1.003 (1.000-1.030); UROBILINOGEN 0.2 MG/DL (0.2-1.0)
[2017-06-15 20:37] LABS: BACTERIA NONE SEEN /HPF; EPITHELIAL CELLS NONE SEEN /HPF; MUCUS NONE SEEN /LPF; RED BLOOD CELLS NONE SEEN /HPF (0-5); UCUL ADDED? NO; WHITE BLOOD CELLS NONE SEEN /HPF (0-5)
[2017-06-15 20:48] LABS: AMPHETAMINE NEGATIVE (500 ng/mL); BARBITURATES NEGATIVE (200 ng/mL); BENZODIAZEPINES NEGATIVE (150 ng/mL); COCAINE NEGATIVE (150 ng/mL); INTERNAL CONTROLS VALID? YES; METHADONE NEGATIVE (200 ng/mL); METHAMPHETAMINE NEGATIVE (500 ng/mL); OPIATES (MORPHINE) NEGATIVE (100 ng/mL); OXYCODONE NEGATIVE (100 ng/mL); PHENCYCLIDINE NEGATIVE (25 ng/mL); PROPOXYPHENE NEGATIVE (300 ng/mL); THC CANNABINOIDS NEGATIVE (50 ng/mL); TRICYCLIC ANTIDEPRESSANTS NEGATIVE (300 ng/mL)
[2017-06-15 22:05] LABS: EOSINOPHIL (%) 0.4 % (0-5); HEMATOCRIT 42.1 % (38.0-50.0); IMMATURE GRANULOCYTE (%) 0.2 % (0.0-0.7); INSTRUMENT ABS NEUTROPHIL CT 2.1 K/uL; LYMPHOCYTE COUNT 2.4 K/uL (1.0-2.8); MCH 32.5 PG (29.0-34.0); MCHC 35.6 G/DL (30.0-36.0); MCV 91.1 FL (86-99); MEAN PLAT.VOLUME 8.8 uM^3 (9.0-12.4); MONOCYTE (%) 7.2 % (3-12); MONOCYTE COUNT 0.4 K/uL (0-0.8); NEUTROPHIL COUNT 2.1 K/uL (1.8-6.4); PLATELET COUNT 253 K/uL (156-360); RBC DIS.WIDTH-CV 12.1 % (11.8-14.6); RBC DIS.WIDTH-SD 40.4 % (39-53); RED BLOOD COUNT 4.62 M/uL (4.00-5.50); WHITE BLOOD COUNT 4.8 K/uL (4.1-10.2)
[2017-06-15 22:16] LABS: CHLORIDE 105 mEq/L (99-109); POTASSIUM 3.5 mEq/L (3.7-5.4); SODIUM 139 mEq/L (136-147)
[2017-06-15 22:18] LABS: GLUCOSE 97 mg/dL (70-99)
[2017-06-15 22:19] LABS: ANION GAP 13 MEQ/L (2-14)
[2017-06-15 22:20] LABS: TOTAL BILIRUBIN 0.8 mg/dL (0.0-1.0)
[2017-06-15 22:22] LABS: ALKALINE PHOSPHATASE 63 IU/L (3-129); GFR ESTIMATE (CALCULATED) > 59 mL/min/
[2017-06-15 22:23] LABS: UREA NITROGEN (BUN) 4 mg/dL (9-23)
[2017-06-15 22:25] LABS: LIPASE 74 U/L (1.0-51.0)
[2017-06-15 23:00] VITALS: BP 123/91
== END 2017-06-15 23:10 | disposition home or self-care (01) ==
LOC: EME → EDBD 20:01 → EME 23:10
PROVIDERS: Emergency Medicine
DX: F10.10 Alcohol abuse, uncomplicated (principal); J45.909 Unspecified asthma, uncomplicated; F32.9 Major depressive disorder, single episode, unspecified; I10 Essential (primary) hypertension; F17.200 Nicotine dependence, unspecified, uncomplicated
CPT/HCPCS: 70450; 80053; 81003; 83690; 85025; 99281; 99285

== ENCOUNTER 2017-06-22 20:53 | Emergency (ER) | payer OTHER ==
[~2017-06-22] VITALS: Ht 177.8 cm; Wt 66.2 kg
[2017-06-22 21:38] LABS: HEMATOCRIT 42.6 % (38.0-50.0); MCH 32.6 PG (29.0-34.0); MCHC 35.4 G/DL (30.0-36.0); MEAN PLAT.VOLUME 9.3 uM^3 (9.0-12.4); PLATELET COUNT 305 K/uL (156-360); RBC DIS.WIDTH-CV 12.9 % (11.8-14.6); RBC DIS.WIDTH-SD 43.1 % (39-53); RED BLOOD COUNT 4.63 M/uL (4.00-5.50); WHITE BLOOD COUNT 3.8 K/uL (4.1-10.2)
[2017-06-22 21:49] LABS: CHLORIDE 105 mEq/L (99-109); POTASSIUM 3.4 mEq/L (3.7-5.4); SODIUM 141 mEq/L (136-147)
[2017-06-22 21:51] LABS: GLUCOSE 94 mg/dL (70-99)
[2017-06-22 21:52] LABS: ANION GAP 15 MEQ/L (2-14)
[2017-06-22 21:54] LABS: SERUM ETHYL ALCOHOL 226 mg/dL
[2017-06-22 21:55] LABS: GFR ESTIMATE (CALCULATED) > 59 mL/min/ (58.99-99999); UREA NITROGEN (BUN) 5 mg/dL (9-23)
[2017-06-22 22:06] LABS: ADD MIUA? NO; BILIRUBIN NEGATIVE; BLOOD NEGATIVE; COLOR YELLOW ((YELLOW)); GLUCOSE (STRIP) NEGATIVE; KETONES 5; LEUKOCYTES NEGATIVE; NITRITE NEGATIVE; PROTEIN (STRIP) 30; SPECIFIC GRAVITY 1.012 (1.000-1.030); UCUL ADDED? NO; UROBILINOGEN 0.2 MG/DL (0.2-1.0)
[2017-06-22 22:17] LABS: AMPHETAMINE NEGATIVE (500 ng/mL); BARBITURATES NEGATIVE (200 ng/mL); BENZODIAZEPINES NEGATIVE (150 ng/mL); COCAINE NEGATIVE (150 ng/mL); INTERNAL CONTROLS VALID? YES; METHADONE NEGATIVE (200 ng/mL); METHAMPHETAMINE NEGATIVE (500 ng/mL); OPIATES (MORPHINE) NEGATIVE (100 ng/mL); OXYCODONE NEGATIVE (100 ng/mL); PHENCYCLIDINE NEGATIVE (25 ng/mL); PROPOXYPHENE NEGATIVE (300 ng/mL); THC CANNABINOIDS NEGATIVE (50 ng/mL); TRICYCLIC ANTIDEPRESSANTS NEGATIVE (300 ng/mL)
[2017-06-23 09:40] VITALS: BP 120/88
== END 2017-06-23 09:56 | disposition home or self-care (01) ==
LOC: EME → EDBD 20:53 → EME 06-23 09:56
PROVIDERS: Emergency Medicine
DX: F10.129 Alcohol abuse with intoxication, unspecified (principal); I10 Essential (primary) hypertension; R56.9 Unspecified convulsions; F32.9 Major depressive disorder, single episode, unspecified; J45.909 Unspecified asthma, uncomplicated; F17.200 Nicotine dependence, unspecified, uncomplicated; Y90.7 Blood alcohol level of 200-239 mg/100 ml; Z91.5 Personal history of self-harm; Z87.820 Personal history of traumatic brain injury
CPT/HCPCS: 80048; 81003; 85027; 90837; 93005; 99281; 99285; G0480; J1630; J2250; J7030

== ENCOUNTER 2017-07-08 04:41 | Emergency (ER) | payer OTHER ==
[~2017-07-08] VITALS: Ht 167.6 cm; Wt 67.7 kg
[2017-07-08 05:43] LABS: CHLORIDE 102 mEq/L (99-109); POTASSIUM 4.3 mEq/L (3.7-5.4); SODIUM 138 mEq/L (136-147)
[2017-07-08 05:44] LABS: MAGNESIUM 1.8 mg/dL (1.3-2.7)
[2017-07-08 05:45] LABS: GLUCOSE 100 mg/dL (70-99)
[2017-07-08 05:47] LABS: ANION GAP 15 MEQ/L (2-14); EOSINOPHIL (%) 0.7 % (0-5); HEMATOCRIT 43.9 % (38.0-50.0); IMMATURE GRANULOCYTE (%) 0.3 % (0.0-0.7); INSTRUMENT ABS NEUTROPHIL CT 1.5 K/uL; LYMPHOCYTE COUNT 0.9 K/uL (1.0-2.8); MCH 32.5 PG (29.0-34.0); MCHC 36.2 G/DL (30.0-36.0); MCV 89.8 FL (86-99); MEAN PLAT.VOLUME 8.9 uM^3 (9.0-12.4); MONOCYTE (%) 15.1 % (3-12); MONOCYTE COUNT 0.4 K/uL (0-0.8); NEUTROPHIL (%) 51.6 % (45-76); NEUTROPHIL COUNT 1.5 K/uL (1.8-6.4); PLATELET COUNT 272 K/uL (156-360); RBC DIS.WIDTH-CV 12.7 % (11.8-14.6); RBC DIS.WIDTH-SD 41.5 % (39-53); RED BLOOD COUNT 4.89 M/uL (4.00-5.50); WHITE BLOOD COUNT 2.9 K/uL (4.1-10.2)
[2017-07-08 05:48] LABS: SERUM ETHYL ALCOHOL < 10 mg/dL
[2017-07-08 05:49] LABS: GFR ESTIMATE (CALCULATED) > 59 mL/min/ (58.99-99999)
[2017-07-08 05:50] LABS: UREA NITROGEN (BUN) 8 mg/dL (9-23)
[2017-07-08] MEDS ORDERED: LIBRIUM25 MG PO (06:59)
[2017-07-08 11:06] VITALS: BP 113/76
== END 2017-07-08 11:06 | disposition home or self-care (01) ==
LOC: EME → EDBD 04:41 → EME 11:06
PROVIDERS: Emergency Medicine
DX: F10.10 Alcohol abuse, uncomplicated (principal); S60.221A Contusion of right hand, initial encounter; I10 Essential (primary) hypertension; J45.909 Unspecified asthma, uncomplicated; F32.9 Major depressive disorder, single episode, unspecified; F17.200 Nicotine dependence, unspecified, uncomplicated; Z91.14 Patient's other noncompliance with medication regimen; Z91.5 Personal history of self-harm; Z87.820 Personal history of traumatic brain injury
CPT/HCPCS: 73130; 80048; 80164; 83735; 85025; 93005; 99281; 99284; G0480; J1953; J7030; J7050

== ENCOUNTER 2017-07-14 00:37 | Inpatient (IN) | payer OTHER ==
[~2017-07-14] VITALS: Ht 167.6 cm
[2017-07-14 02:39] LABS: BASOPHIL (%) 0.2 % (0-1); EOSINOPHIL (%) 0.9 % (0-5); HEMATOCRIT 41.6 % (38.0-50.0); HEMOGLOBIN 14.8 G/DL (12.5-16.6); IMMATURE GRANULOCYTE (%) 0.2 % (0.0-0.7); LYMPHOCYTE (%) 58.2 % (15-42); LYMPHOCYTE COUNT 2.7 K/uL (1.0-2.8); MCH 32.5 PG (29.0-34.0); MCHC 35.6 G/DL (30.0-36.0); MCV 91.2 FL (86-99); MONOCYTE (%) 5.6 % (3-12); MONOCYTE COUNT 0.3 K/uL (0-0.8); NEUTROPHIL (%) 34.9 % (45-76); NEUTROPHIL COUNT 1.6 K/uL (1.8-6.4); PLATELET COUNT 241 K/uL (156-360); RBC DIS.WIDTH-CV 13.2 % (11.8-14.6); RBC DIS.WIDTH-SD 43.6 % (39-53); RED BLOOD COUNT 4.56 M/uL (4.00-5.50); WHITE BLOOD COUNT 4.6 K/uL (4.1-10.2)
[2017-07-14 02:48] LABS: CHLORIDE 104 mEq/L (99-109); POTASSIUM 3.6 mEq/L (3.7-5.4); SODIUM 139 mEq/L (136-147)
[2017-07-14 02:50] LABS: GLUCOSE 99 mg/dL (70-99)
[2017-07-14 02:53] LABS: SERUM ETHYL ALCOHOL 302 mg/dL
[2017-07-14 02:54] LABS: CREATININE 0.8 mg/dL (0.6-1.3); GFR ESTIMATE (CALCULATED) > 59 mL/min/ (58.99-99999)
[2017-07-14 02:55] LABS: UREA NITROGEN (BUN) 9 mg/dL (9-23)
[2017-07-14 11:40] LABS: AMPHETAMINE NEGATIVE (500 ng/mL); BARBITURATES NEGATIVE (200 ng/mL); BENZODIAZEPINES PRESUMPTIVE POSITIVE (150 ng/mL); BUPRENORPHINE NEGATIVE (10 ng/mL); COCAINE NEGATIVE (150 ng/mL); METHADONE NEGATIVE (200 ng/mL); METHAMPHETAMINE NEGATIVE (500 ng/mL); OPIATES (MORPHINE) NEGATIVE (100 ng/mL); OXYCODONE NEGATIVE (100 ng/mL); PHENCYCLIDINE NEGATIVE (25 ng/mL); PROPOXYPHENE NEGATIVE (300 ng/mL); THC CANNABINOIDS NEGATIVE (50 ng/mL); TRICYCLIC ANTIDEPRESSANTS NEGATIVE (300 ng/mL)
[2017-07-14 12:10] LABS: BENZODIAZEPINES, URINE SCREEN Negative (200 ng/mL)
[2017-07-14 12:49] VITALS: BP 118/90
[2017-07-14] MEDS ORDERED: DEPAKOTE ER500 MG PO (13:21)
[2017-07-14] MEDS ORDERED: DIVALPROEX SOD500 MG PO (13:22)
[2017-07-14 16:08] VITALS: BP 114/75
[2017-07-15 07:50] VITALS: BP 101/60
[2017-07-15 15:35] VITALS: BP 122/78
[2017-07-16 07:08] VITALS: BP 111/82
[2017-07-16] MEDS ORDERED: CITALOPRAM HBR10 MG PO (11:32)
[2017-07-16] MEDS ORDERED: DIVALPROEX SOD500 MG PO (11:32)
[2017-07-16] MEDS ORDERED: LEVETIRACETAM500 MG PO (11:32)
== END 2017-07-16 11:41 | disposition left against medical advice (07) | DRG 881 ==
LOC: EME 00:37 → 1WEST 11:23 → EDOF 11:23 → ENRESERV 12:26 → 1WEST 12:34
PROVIDERS: Emergency Medicine Emergency Medical Services
DX: F32.9 Major depressive disorder, single episode, unspecified (principal); F10.929 Alcohol use, unspecified with intoxication, unspecified; Y90.8 Blood alcohol level of 240 mg/100 ml or more; R45.851 Suicidal ideations; F17.200 Nicotine dependence, unspecified, uncomplicated; G40.909 Epilepsy, unspecified, not intractable, without status epilepticus; I10 Essential (primary) hypertension; J45.909 Unspecified asthma, uncomplicated; G43.909 Migraine, unspecified, not intractable, without status migrainosus; Z91.19 Patient's noncompliance with other medical treatment and regimen; Z91.5 Personal history of self-harm; Z91.14 Patient's other noncompliance with medication regimen
CPT/HCPCS: 80048; 84999; 85025; 90686; 90837; 99281; 99285; G0480; J1630; J2060

== ENCOUNTER 2017-07-22 23:30 | Emergency (ER) | payer OTHER ==
[~2017-07-22] VITALS: Ht 172.7 cm; Wt 66.2 kg
[2017-07-23 00:18] LABS: HEMATOCRIT 44.7 % (38.0-50.0); MCH 32.7 PG (29.0-34.0); MCHC 35.8 G/DL (30.0-36.0); MCV 91.4 FL (86-99); NRBC (%) 0.3 /100 WBC (0-0); PLATELET COUNT 296 K/uL (156-360); RBC DIS.WIDTH-CV 13.4 % (11.8-14.6); RBC DIS.WIDTH-SD 45.1 % (39-53); RED BLOOD COUNT 4.89 M/uL (4.00-5.50); WHITE BLOOD COUNT 6.8 K/uL (4.1-10.2)
[2017-07-23 00:24] LABS: AMPHETAMINE NEGATIVE (500 ng/mL); BARBITURATES NEGATIVE (200 ng/mL); BENZODIAZEPINES PRESUMPTIVE POSITIVE (150 ng/mL); BUPRENORPHINE NEGATIVE (10 ng/mL); COCAINE NEGATIVE (150 ng/mL); METHADONE NEGATIVE (200 ng/mL); METHAMPHETAMINE NEGATIVE (500 ng/mL); OPIATES (MORPHINE) NEGATIVE (100 ng/mL); OXYCODONE NEGATIVE (100 ng/mL); PHENCYCLIDINE NEGATIVE (25 ng/mL); PROPOXYPHENE NEGATIVE (300 ng/mL); THC CANNABINOIDS NEGATIVE (50 ng/mL); TRICYCLIC ANTIDEPRESSANTS NEGATIVE (300 ng/mL)
[2017-07-23 00:34] LABS: CHLORIDE 105 mEq/L (99-109); POTASSIUM 3.8 mEq/L (3.7-5.4); SODIUM 138 mEq/L (136-147)
[2017-07-23 00:36] LABS: GLUCOSE 103 mg/dL (70-99)
[2017-07-23 00:39] LABS: SERUM ETHYL ALCOHOL 301 mg/dL
[2017-07-23 00:40] LABS: GFR ESTIMATE (CALCULATED) > 59 mL/min/ (58.99-99999)
[2017-07-23 00:41] LABS: UREA NITROGEN (BUN) 11 mg/dL (9-23)
[2017-07-23 01:28] LABS: BASOPHIL (%) 0.4 % (0-1); EOSINOPHIL (%) 1.2 % (0-5); EOSINOPHIL COUNT 0.1 K/uL (0-0.3); HEMATOLOGY COMMENT 1 SMEAR COMPATIBLE; IMMATURE GRANULOCYTE (%) 0.3 % (0.0-0.7); LYMPHOCYTE (%) 71.1 % (15-42); LYMPHOCYTE COUNT 4.8 K/uL (1.0-2.8); MONOCYTE (%) 5.3 % (3-12); MONOCYTE COUNT 0.4 K/uL (0-0.8); NEUTROPHIL (%) 21.7 % (45-76); NEUTROPHIL COUNT 1.5 K/uL (1.8-6.4); PLAT.SUFFICIENCY ADEQUATE
[2017-07-23 01:51] LABS: BENZODIAZEPINES, URINE SCREEN Negative (200 ng/mL)
[2017-07-23 11:25] VITALS: BP 113/90
== END 2017-07-23 11:26 | disposition home or self-care (01) ==
LOC: EME 23:30
PROVIDERS: Emergency Medicine
DX: F32.9 Major depressive disorder, single episode, unspecified (principal); F10.129 Alcohol abuse with intoxication, unspecified; Y90.8 Blood alcohol level of 240 mg/100 ml or more; G40.909 Epilepsy, unspecified, not intractable, without status epilepticus; I10 Essential (primary) hypertension; J45.909 Unspecified asthma, uncomplicated; F31.9 Bipolar disorder, unspecified; Z91.5 Personal history of self-harm; Z87.820 Personal history of traumatic brain injury; F17.200 Nicotine dependence, unspecified, uncomplicated
CPT/HCPCS: 71045; 73130; 80048; 82948; 84999; 85025; 90837; 99281; 99285; G0480; J1953; J2060; J7030; J7050

== ENCOUNTER 2017-08-01 04:32 | Emergency (ER) | payer OTHER ==
[~2017-08-01] VITALS: Ht 167.6 cm; Wt 68.2 kg
[2017-08-01 07:36] LABS: BASOPHIL (%) 0.5 % (0-1); EOSINOPHIL (%) 2.3 % (0-5); EOSINOPHIL COUNT 0.1 K/uL (0-0.3); HEMATOCRIT 41.4 % (38.0-50.0); HEMOGLOBIN 14.5 G/DL (12.5-16.6); IMMATURE GRANULOCYTE (%) 0.3 % (0.0-0.7); LYMPHOCYTE (%) 56.6 % (15-42); LYMPHOCYTE COUNT 2.3 K/uL (1.0-2.8); MCH 32.3 PG (29.0-34.0); MCV 92.2 FL (86-99); MONOCYTE (%) 11.3 % (3-12); MONOCYTE COUNT 0.5 K/uL (0-0.8); NEUTROPHIL COUNT 1.2 K/uL (1.8-6.4); PLATELET COUNT 219 K/uL (156-360); RBC DIS.WIDTH-CV 13.7 % (11.8-14.6); RBC DIS.WIDTH-SD 46.5 % (39-53); RED BLOOD COUNT 4.49 M/uL (4.00-5.50)
[2017-08-01 07:43] LABS: APPEARANCE CLEAR ((CLEAR)); BILIRUBIN NEGATIVE; BLOOD NEGATIVE; COLOR STRAW ((YELLOW)); GLUCOSE (STRIP) NEGATIVE; KETONES NEGATIVE; LEUKOCYTES NEGATIVE; NITRITE NEGATIVE; PROTEIN (STRIP) NEGATIVE; SPECIFIC GRAVITY 1.004 (1.000-1.030); UROBILINOGEN 0.2 MG/DL (0.2-1.0)
[2017-08-01 07:55] LABS: AMPHETAMINE NEGATIVE (500 ng/mL); BARBITURATES NEGATIVE (200 ng/mL); BENZODIAZEPINES PRESUMPTIVE POSITIVE (150 ng/mL); BUPRENORPHINE NEGATIVE (10 ng/mL); COCAINE NEGATIVE (150 ng/mL); METHADONE NEGATIVE (200 ng/mL); METHAMPHETAMINE NEGATIVE (500 ng/mL); OPIATES (MORPHINE) NEGATIVE (100 ng/mL); OXYCODONE NEGATIVE (100 ng/mL); PHENCYCLIDINE NEGATIVE (25 ng/mL); PROPOXYPHENE NEGATIVE (300 ng/mL); THC CANNABINOIDS NEGATIVE (50 ng/mL); TRICYCLIC ANTIDEPRESSANTS NEGATIVE (300 ng/mL)
[2017-08-01 08:05] LABS: CHLORIDE 103 MEQ/L (99-109); POTASSIUM 3.8 MEQ/L (3.7-5.4); SODIUM 137 MEQ/L (136-147)
[2017-08-01 08:10] LABS: CREATININE 0.7 MG/DL (0.6-1.3); GFR ESTIMATE (CALCULATED) > 59 mL/min/ (58.99-99999); GLUCOSE 92 mg/dL (70-99); SERUM ETHYL ALCOHOL 292 mg/dL; UREA NITROGEN (BUN) 6 mg/dL (9-23)
[2017-08-01 08:32] LABS: BENZODIAZEPINES, URINE SCREEN Negative (200 ng/mL)
[2017-08-01] MEDS ORDERED: MOTRIN800 MG PO (14:04)
[2017-08-01] MEDS ORDERED: ZITHROMAX Z-PA250 MG PO (14:04)
[2017-08-01 17:00] VITALS: BP 130/84
== END 2017-08-01 17:01 | disposition home or self-care (01) ==
LOC: EME 04:32
PROVIDERS: Emergency Medicine
DX: F10.129 Alcohol abuse with intoxication, unspecified (principal); S76.011A Strain of muscle, fascia and tendon of right hip, initial encounter; W19.XXXA Unspecified fall, initial encounter; J40 Bronchitis, not specified as acute or chronic; F41.9 Anxiety disorder, unspecified; F33.9 Major depressive disorder, recurrent, unspecified; R11.2 Nausea with vomiting, unspecified; R91.8 Other nonspecific abnormal finding of lung field; Z87.820 Personal history of traumatic brain injury; Z91.5 Personal history of self-harm; Y90.8 Blood alcohol level of 240 mg/100 ml or more; F17.200 Nicotine dependence, unspecified, uncomplicated
CPT/HCPCS: 70450; 73502; 74176; 80048; 81003; 84999; 85025; 90839; 99281; 99285; G0480

== ENCOUNTER 2017-08-08 00:13 | Inpatient (IN) | payer OTHER ==
[~2017-08-08] VITALS: Ht 167.6 cm; Wt 65.9 kg
[~2017-08-08 00:13] MED LIST changes: +MOTRIN800 MG PO; +ZITHROMAX Z-PA250 MG PO
[2017-08-08 00:43] LABS: BASOPHIL (%) 0.3 % (0-1); EOSINOPHIL COUNT 0.1 K/uL (0-0.3); HEMATOCRIT 40.8 % (38.0-50.0); HEMOGLOBIN 14.9 G/DL (12.5-16.6); IMMATURE GRANULOCYTE (%) 0.2 % (0.0-0.7); LYMPHOCYTE (%) 55.1 % (15-42); LYMPHOCYTE COUNT 3.5 K/uL (1.0-2.8); MCH 32.7 PG (29.0-34.0); MCHC 36.5 G/DL (30.0-36.0); MCV 89.7 FL (86-99); MONOCYTE (%) 5.6 % (3-12); MONOCYTE COUNT 0.4 K/uL (0-0.8); NEUTROPHIL (%) 37.8 % (45-76); NEUTROPHIL COUNT 2.4 K/uL (1.8-6.4); PLATELET COUNT 242 K/uL (156-360); RBC DIS.WIDTH-CV 13.6 % (11.8-14.6); RBC DIS.WIDTH-SD 44.8 % (39-53); RED BLOOD COUNT 4.55 M/uL (4.00-5.50); WHITE BLOOD COUNT 6.3 K/uL (4.1-10.2)
[2017-08-08 01:16] LABS: ALBUMIN 4.4 g/dL (3.2-4.8)
[2017-08-08 01:17] LABS: CHLORIDE 99 mEq/L (99-109); POTASSIUM 3.9 mEq/L (3.7-5.4); SODIUM 136 mEq/L (136-147)
[2017-08-08 01:19] LABS: GLUCOSE 82 mg/dL (70-99)
[2017-08-08 01:21] LABS: TOTAL BILIRUBIN 0.8 mg/dL (0.0-1.0)
[2017-08-08 01:22] LABS: SERUM ETHYL ALCOHOL 334 mg/dL
[2017-08-08 01:23] LABS: ALKALINE PHOSPHATASE 95 IU/L (3-129); CREATININE 0.7 mg/dL (0.6-1.3); GFR ESTIMATE (CALCULATED) > 59 mL/min/ (58.99-99999)
[2017-08-08 01:24] LABS: AST (GOT) 188 IU/L (2-34)
[2017-08-08 01:25] LABS: UREA NITROGEN (BUN) 7 mg/dL (9-23)
[2017-08-08 01:26] LABS: SALICYLATE < 5.0 MG/DL (15-30)
[2017-08-08 01:27] LABS: ACETAMINOPHEN (TYLENOL) < 10 mcg/mL (10-30); ALT (GPT) 64 IU/L (3-49)
[2017-08-08 02:43] LABS: AMPHETAMINE NEGATIVE (500 ng/mL); BARBITURATES NEGATIVE (200 ng/mL); BENZODIAZEPINES PRESUMPTIVE POSITIVE (150 ng/mL); COCAINE NEGATIVE (150 ng/mL); METHADONE NEGATIVE (200 ng/mL); METHAMPHETAMINE NEGATIVE (500 ng/mL); OPIATES (MORPHINE) NEGATIVE (100 ng/mL); OXYCODONE NEGATIVE (100 ng/mL); PHENCYCLIDINE NEGATIVE (25 ng/mL); THC CANNABINOIDS NEGATIVE (50 ng/mL); TRICYCLIC ANTIDEPRESSANTS NEGATIVE (300 ng/mL)
[2017-08-08 02:44] LABS: BUPRENORPHINE NEGATIVE (10 ng/mL); PROPOXYPHENE NEGATIVE (300 ng/mL)
[2017-08-08 04:35] LABS: BENZODIAZEPINES, URINE SCREEN Negative (200 ng/mL)
[2017-08-08 14:29] VITALS: BP 130/80
[2017-08-08 14:59] VITALS: BP 130/80
[2017-08-09 07:42] VITALS: BP 126/82
[2017-08-09 15:48] VITALS: BP 132/90
[2017-08-10 07:35] VITALS: BP 111/82
[2017-08-10 15:41] VITALS: BP 118/81
[2017-08-11 07:36] VITALS: BP 134/86
[2017-08-11 16:02] VITALS: BP 127/79
[2017-08-12 07:33] VITALS: BP 98/68
[2017-08-12 16:26] VITALS: BP 132/91
[2017-08-13 07:48] VITALS: BP 135/96
[2017-08-13] MEDS ORDERED: LEVETIRACETAM500 MG PO (09:23)
[2017-08-13] MEDS ORDERED: DIVALPROEX SOD500 MG PO (09:23)
[2017-08-13] MEDS ORDERED: CITALOPRAM HBR10 MG PO (09:23)
[2017-08-13 11:30] LABS: UR CREATININE CONCENTRATION 61.6 MG/DL
[2017-08-13 11:51] LABS: CREATININE 0.6 MG/DL (0.6-1.3)
== END 2017-08-13 12:32 | disposition home or self-care (01) | DRG 897 ==
LOC: EME 00:13 → ENRESERV 12:34 → 1WEST 13:27 → EDOF 13:27 → 1WEST 14:17
PROVIDERS: Emergency Medicine; Psychiatry & Neurology Psychiatry
DX: F10.24 Alcohol dependence with alcohol-induced mood disorder (principal); R45.851 Suicidal ideations; Z91.5 Personal history of self-harm; J45.909 Unspecified asthma, uncomplicated; I10 Essential (primary) hypertension; F17.200 Nicotine dependence, unspecified, uncomplicated; Y90.8 Blood alcohol level of 240 mg/100 ml or more; Z59.0 Homelessness; Z91.19 Patient's noncompliance with other medical treatment and regimen; Z91.14 Patient's other noncompliance with medication regimen; F12.90 Cannabis use, unspecified, uncomplicated; G40.909 Epilepsy, unspecified, not intractable, without status epilepticus; F10.239 Alcohol dependence with withdrawal, unspecified
CPT/HCPCS: 80053; 80164; 81050; 82575; 84999; 85025; 90837; 94640; 94640 76; 99202; 99281; 99285; G0480

== ENCOUNTER 2017-08-19 07:46 | Inpatient (IN) | payer OTHER ==
[~2017-08-19] VITALS: Ht 175.3 cm; Wt 70.9 kg
[2017-08-19] VITALS (9 sets, daily range): BP systolic 0–178; BP diastolic 0–138
[2017-08-19 08:15] LABS: INTER. NORMALIZED RATIO 1.1
[2017-08-19 08:17] LABS: AMYLASE 112 IU/L (1-118); CHLORIDE 97 mEq/L (99-109); POTASSIUM 3.3 mEq/L (3.7-5.4); SODIUM 143 mEq/L (136-147)
[2017-08-19 08:18] LABS: HEMATOCRIT 47.7 % (38.0-50.0); HEMOGLOBIN 15.8 G/DL (12.5-16.6); MCH 32.9 PG (29.0-34.0); MCHC 33.1 G/DL (30.0-36.0); NRBC (%) 0.1 /100 WBC (0-0); PTT 33.6 SEC (25-37); RBC DIS.WIDTH-CV 13.3 % (11.8-14.6); RBC DIS.WIDTH-SD 49.1 % (39-53); WHITE BLOOD COUNT 13.9 K/uL (4.1-10.2)
[2017-08-19 08:19] LABS: GLUCOSE 135 mg/dL (70-99)
[2017-08-19 08:22] LABS: SERUM ETHYL ALCOHOL < 10 mg/dL
[2017-08-19 08:23] LABS: CREATININE 1.5 mg/dL (0.6-1.3); GFR ESTIMATE (CALCULATED) > 59 mL/min/ (58.99-99999)
[2017-08-19 08:24] LABS: UREA NITROGEN (BUN) 14 mg/dL (9-23)
[2017-08-19 08:30] LABS: TROP-I INTERPRETATION NEGATIVE; TROPONIN-I 0.02 ng/mL (0.0-0.30)
[2017-08-19 08:32] LABS: MCV 99.4 FL (86-99); PLATELET COUNT 379 K/uL (156-360)
[2017-08-19 08:36] LABS: BASE EXCESS -16.2 mEq/L (-3 to +3); BICARBONATE 10.9 mEq/L (22-26); CARBOXY HGB 1.6 % (0-5); PCO2 30 mm Hg (35-45); PO2 > 583 mm Hg (80-100)
[2017-08-19 08:37] LABS: COMMENTS - BLOOD GASES A+C+; DEVICE 840; FI02 100 %; MECHANICAL RATE 20 resp/min; MODE AC; PEEP 5 CM/H20; SITE RR; TIDAL VOLUME 450 ML; TOTAL RESP RATE 33 resp/min; pH 7.17 (7.35-7.45)
[2017-08-19 08:41] LABS: LIPASE 73 U/L (1.0-51.0)
[2017-08-19 08:57] LABS: ABS NEUTROPHIL COUNT 6.3; ATYPICAL LYMPHOCYTE 13.4 %; BAND NEUTROPHILS 3.6 % (0-8.0); EOSINOPHIL ABS CT 0; LYMPHOCYTES 26.8 % (15.0-45.0); MACROCYTES 1+; METAMYELOCYTES 2.7 %; MONOCYTES 9.8 % (0-9.0); MYELOCYTES 1.8 %; PLAT.SUFFICIENCY ADEQUATE; POLYCHROMASIA 1+; SEG.NEUTROPHILS 41.9 % (46.0-76.0); SMUDGE CELLS 13.4
[2017-08-19 10:36] LABS: APPEARANCE CLEAR ((CLEAR)); BILIRUBIN NEGATIVE; BLOOD MODERATE; COLOR STRAW ((YELLOW)); GLUCOSE (STRIP) >=500; KETONES 20; LEUKOCYTES NEGATIVE; NITRITE NEGATIVE; PROTEIN (STRIP) NEGATIVE; SPECIFIC GRAVITY 1.006 (1.000-1.030); UROBILINOGEN 0.2 MG/DL (0.2-1.0)
[2017-08-19 10:43] LABS: BACTERIA RARE /HPF; EPITHELIAL CELLS RARE /HPF; HYALINE CASTS 0-5 /LPF; MUCUS TRACE /LPF; RED BLOOD CELLS 0-5 /HPF (0-5); UCUL ADDED? NO; WHITE BLOOD CELLS 0-5 /HPF (0-5)
[2017-08-19 10:45] LABS: AMPHETAMINE NEGATIVE (500 ng/mL); BARBITURATES NEGATIVE (200 ng/mL); BENZODIAZEPINES PRESUMPTIVE POSITIVE (150 ng/mL); BUPRENORPHINE NEGATIVE (10 ng/mL); COCAINE NEGATIVE (150 ng/mL); METHADONE NEGATIVE (200 ng/mL); METHAMPHETAMINE NEGATIVE (500 ng/mL); OPIATES (MORPHINE) NEGATIVE (100 ng/mL); OXYCODONE NEGATIVE (100 ng/mL); PHENCYCLIDINE PRESUMPTIVE POSITIVE (25 ng/mL); PROPOXYPHENE NEGATIVE (300 ng/mL); THC CANNABINOIDS NEGATIVE (50 ng/mL); TRICYCLIC ANTIDEPRESSANTS NEGATIVE (300 ng/mL)
[2017-08-19 11:21] LABS: BENZODIAZEPINES, URINE SCREEN Negative (200 ng/mL)
[2017-08-19 13:41] LABS: BASOPHIL (%) 0.3 % (0-1); BASOPHIL COUNT 0.1 K/uL (0-0.1); EOSINOPHIL (%) 0 % (0-5); HEMATOCRIT 51.1 % (38.0-50.0); HEMOGLOBIN 17.7 G/DL (12.5-16.6); IMMATURE GRANULOCYTE (%) 0.4 % (0.0-0.7); LYMPHOCYTE (%) 3.1 % (15-42); LYMPHOCYTE COUNT 0.6 K/uL (1.0-2.8); MCH 32.3 PG (29.0-34.0); MCHC 34.6 G/DL (30.0-36.0); MONOCYTE (%) 9.8 % (3-12); MONOCYTE COUNT 1.8 K/uL (0-0.8); NEUTROPHIL (%) 86.4 % (45-76); PLATELET COUNT 368 K/uL (156-360); RBC DIS.WIDTH-CV 13.1 % (11.8-14.6); RBC DIS.WIDTH-SD 45.1 % (39-53); RED BLOOD COUNT 5.48 M/uL (4.00-5.50); WHITE BLOOD COUNT 18.5 K/uL (4.1-10.2)
[2017-08-19 13:42] LABS: MCV 93.2 FL (86-99)
[2017-08-19 13:44] LABS: INTER. NORMALIZED RATIO 1.1
[2017-08-19 13:46] LABS: PTT 30.8 SEC (25-37)
[2017-08-19 14:00] LABS: TROP-I INTERPRETATION POSITIVE; TROPONIN-I 2.54 ng/mL (0.0-0.30)
[2017-08-19 14:20] LABS: CHLORIDE 96 MEQ/L (99-109); MAGNESIUM 2.2 mg/dl (1.3-2.7); PHOSPHORUS 4.2 mg/dL (2.5-4.9); POTASSIUM 3.6 MEQ/L (3.7-5.4); UREA NITROGEN (BUN) 14 mg/dL (9-23)
[2017-08-19 14:37] LABS: CREATININE 0.8 MG/DL (0.6-1.3); GFR ESTIMATE (CALCULATED) > 59 mL/min/ (58.99-99999); GLUCOSE 345 mg/dL (70-99); SODIUM 134 MEQ/L (136-147)
[2017-08-19 16:29] LABS: BASE EXCESS -12.6 mEq/L (-3 to +3); METHEMOGLOBIN 1.7 % (0-1.5); PCO2 34 mm Hg (35-45)
[2017-08-19 16:30] LABS: BICARBONATE 13.9 mEq/L (22-26); COMMENTS - BLOOD GASES C+; CONTINUOUS POS AIRWAY PRESSURE 5 cm H2O; DEVICE VENT; FI02 50 %; MODE SPONT; PO2 153 mm Hg (80-100); PRES. SUPPORT 15 CM/H2O; SITE LR ALINE; TOTAL RESP RATE 32 resp/min; pH 7.22 (7.35-7.45)
[2017-08-19 18:08] LABS: BASOPHIL (%) 0.3 % (0-1); BASOPHIL COUNT 0.1 K/uL (0-0.1); EOSINOPHIL (%) 0.1 % (0-5); HEMATOCRIT 51.9 % (38.0-50.0); HEMOGLOBIN 18.3 G/DL (12.5-16.6); IMMATURE GRANULOCYTE (%) 0.4 % (0.0-0.7); LYMPHOCYTE (%) 2.4 % (15-42); LYMPHOCYTE COUNT 0.5 K/uL (1.0-2.8); MCHC 35.3 G/DL (30.0-36.0); MCV 90.7 FL (86-99); MONOCYTE COUNT 1.3 K/uL (0-0.8); NEUTROPHIL (%) 89.8 % (45-76); NEUTROPHIL COUNT 16.9 K/uL (1.8-6.4); PLATELET COUNT 367 K/uL (156-360); RBC DIS.WIDTH-SD 42.8 % (39-53); RED BLOOD COUNT 5.72 M/uL (4.00-5.50); WHITE BLOOD COUNT 18.8 K/uL (4.1-10.2)
[2017-08-19 18:10] LABS: INTER. NORMALIZED RATIO 1.1
[2017-08-19 18:13] LABS: PTT 31.9 SEC (25-37)
[2017-08-19 18:17] LABS: TROP-I INTERPRETATION POSITIVE; TROPONIN-I 2.93 ng/mL (0.0-0.30)
[2017-08-19 18:19] LABS: CHLORIDE 100 MEQ/L (99-109); CREATININE 0.8 MG/DL (0.6-1.3); GFR ESTIMATE (CALCULATED) > 59 mL/min/ (58.99-99999); GLUCOSE 309 mg/dL (70-99); MAGNESIUM 2.1 mg/dl (1.3-2.7); PHOSPHORUS 3.3 mg/dL (2.5-4.9); POTASSIUM 3.2 MEQ/L (3.7-5.4); SODIUM 136 MEQ/L (136-147); UREA NITROGEN (BUN) 15 mg/dL (9-23)
[2017-08-19 18:40] LABS: BASE EXCESS -14.2 mEq/L (-3 to +3); CARBOXY HGB 1.3 % (0-5); METHEMOGLOBIN 1.5 % (0-1.5)
[2017-08-19 18:41] LABS: DEVICE VENT; FI02 40 %; MECHANICAL RATE 20 resp/min; PCO2 25 mm Hg (35-45); PEEP 5 CM/H20; PO2 77 mm Hg (80-100); SITE ALINE; TIDAL VOLUME 450 ML; pH 7.25 (7.35-7.45)
[2017-08-20] VITALS (7 sets, daily range): BP systolic 99–137; BP diastolic 72–100
[2017-08-20 00:32] LABS: BASE EXCESS -10.8 mEq/L (-3 to +3); BICARBONATE 13.9 mEq/L (22-26); COMMENTS - BLOOD GASES C+; METHEMOGLOBIN 1.5 % (0-1.5); PCO2 29 mm Hg (35-45); PO2 137 mm Hg (80-100); SITE A-LINE
[2017-08-20 00:33] LABS: DEVICE 840; FI02 40 %; MECHANICAL RATE 20 resp/min; MODE AC; PEEP 5 CM/H20; TIDAL VOLUME 450 ML; TOTAL RESP RATE 32 resp/min; pH 7.29 (7.35-7.45)
[2017-08-20 01:05] LABS: INTER. NORMALIZED RATIO 1.2
[2017-08-20 01:07] LABS: PTT 30.1 SEC (25-37)
[2017-08-20 01:08] LABS: ALBUMIN 4.5 g/dL (3.2-4.8)
[2017-08-20 01:08] LABS: HEMATOCRIT 52.7 % (38.0-50.0); HEMOGLOBIN 19.3 G/DL (12.5-16.6); MCH 32.8 PG (29.0-34.0); MCHC 36.6 G/DL (30.0-36.0); MCV 89.6 FL (86-99); PLATELET COUNT 340 K/uL (156-360); RBC DIS.WIDTH-SD 42.7 % (39-53); RED BLOOD COUNT 5.88 M/uL (4.00-5.50); WHITE BLOOD COUNT 13.6 K/uL (4.1-10.2)
[2017-08-20 01:10] LABS: CHLORIDE 105 mEq/L (99-109); SODIUM 138 mEq/L (136-147)
[2017-08-20 01:11] LABS: MAGNESIUM 2.3 mg/dL (1.3-2.7)
[2017-08-20 01:11] LABS: TOTAL PROTEIN 8.5 g/dL (6.4-8.3)
[2017-08-20 01:12] LABS: GLUCOSE 157 mg/dL (70-99)
[2017-08-20 01:13] LABS: TOTAL BILIRUBIN 0.5 mg/dL (0.0-1.0)
[2017-08-20 01:14] LABS: ALKALINE PHOSPHATASE 132 IU/L (3-129)
[2017-08-20 01:16] LABS: AST (GOT) 413 IU/L (2-34)
[2017-08-20 01:16] LABS: CREATININE 0.9 mg/dL (0.6-1.3); GFR ESTIMATE (CALCULATED) > 59 mL/min/ (58.99-99999); PHOSPHORUS 3.3 mg/dL (2.5-4.9)
[2017-08-20 01:17] LABS: ALT (GPT) 199 IU/L (3-49); DIRECT BILIRUBIN 0.3 mg/dL (0.0-0.3)
[2017-08-20 01:17] LABS: UREA NITROGEN (BUN) 19 mg/dL (9-23)
[2017-08-20 01:19] LABS: TROP-I INTERPRETATION POSITIVE
[2017-08-20 01:20] LABS: TROPONIN-I 1.76 ng/mL (0.0-0.30)
[2017-08-20 02:00] LABS: ABS NEUTROPHIL COUNT 9.7; EOSINOPHIL ABS CT 0; LYMPHOCYTES 3.7 % (15.0-45.0); MACROCYTES 2+; METAMYELOCYTES 10.1 %; MONOCYTES 9.2 % (0-9.0); PLAT.SUFFICIENCY ADEQUATE; SEG.NEUTROPHILS 49.5 % (46.0-76.0); TEAR DROP CELLS 1+
[2017-08-20 05:35] LABS: BASE EXCESS -12.6 mEq/L (-3 to +3); BICARBONATE 12.4 mEq/L (22-26); CARBOXY HGB 1.5 % (0-5); METHEMOGLOBIN 1.6 % (0-1.5); PCO2 27 mm Hg (35-45); PO2 218 mm Hg (80-100)
[2017-08-20 05:36] LABS: COMMENTS - BLOOD GASES C+; DEVICE 840; FI02 40 %; MECHANICAL RATE 20 resp/min; MODE AC; PEEP 5 CM/H20; SITE A-LINE; TIDAL VOLUME 450 ML; TOTAL RESP RATE 31 resp/min; pH 7.27 (7.35-7.45)
[2017-08-20 05:53] LABS: BASOPHIL (%) 0.3 % (0-1); EOSINOPHIL (%) 0.2 % (0-5); HEMATOCRIT 48.8 % (38.0-50.0); HEMOGLOBIN 16.9 G/DL (12.5-16.6); IMMATURE GRANULOCYTE (%) 0.2 % (0.0-0.7); LYMPHOCYTE (%) 6.4 % (15-42); LYMPHOCYTE COUNT 0.8 K/uL (1.0-2.8); MCH 31.1 PG (29.0-34.0); MCHC 34.6 G/DL (30.0-36.0); MCV 89.9 FL (86-99); MONOCYTE (%) 6.2 % (3-12); MONOCYTE COUNT 0.8 K/uL (0-0.8); NEUTROPHIL (%) 86.7 % (45-76); NEUTROPHIL COUNT 10.4 K/uL (1.8-6.4); PLATELET COUNT 313 K/uL (156-360); RBC DIS.WIDTH-CV 13.1 % (11.8-14.6); RBC DIS.WIDTH-SD 43.2 % (39-53); RED BLOOD COUNT 5.43 M/uL (4.00-5.50)
[2017-08-20 05:59] LABS: INTER. NORMALIZED RATIO 1.2
[2017-08-20 06:02] LABS: PTT 30.3 SEC (25-37)
[2017-08-20 06:08] LABS: TROP-I INTERPRETATION POSITIVE; TROPONIN-I 1.38 ng/mL (0.0-0.30)
[2017-08-20 06:18] LABS: CHLORIDE 107 MEQ/L (99-109); CREATININE 0.7 MG/DL (0.6-1.3); GFR ESTIMATE (CALCULATED) > 59 mL/min/ (58.99-99999); GLUCOSE 191 mg/dL (70-99); MAGNESIUM 1.8 mg/dl (1.3-2.7); PHOSPHORUS 3.3 mg/dL (2.5-4.9); SODIUM 138 MEQ/L (136-147); UREA NITROGEN (BUN) 18 mg/dL (9-23)
[2017-08-20 12:02] LABS: BASE EXCESS -10.7 mEq/L (-3 to +3); BICARBONATE 14.4 mEq/L (22-26); CARBOXY HGB 4.1 % (0-5); METHEMOGLOBIN 0.9 % (0-1.5); PCO2 30 mm Hg (35-45)
[2017-08-20 12:03] LABS: PO2 93 mm Hg (80-100)
[2017-08-20 12:04] LABS: COMMENTS - BLOOD GASES C+; DEVICE VENT; FI02 30 %; MECHANICAL RATE 20 resp/min; MODE AC; PEEP 5 CM/H20; SITE LR ALINE; TIDAL VOLUME 450 ML; TOTAL RESP RATE 24 resp/min; pH 7.29 (7.35-7.45)
[2017-08-20 12:17] LABS: HEMATOCRIT 47.6 % (38.0-50.0); HEMOGLOBIN 16.8 G/DL (12.5-16.6); MCH 31.8 PG (29.0-34.0); MCHC 35.3 G/DL (30.0-36.0); MCV 90.2 FL (86-99); PLATELET COUNT 299 K/uL (156-360); RBC DIS.WIDTH-CV 13.2 % (11.8-14.6); RBC DIS.WIDTH-SD 43.5 % (39-53); RED BLOOD COUNT 5.28 M/uL (4.00-5.50); WHITE BLOOD COUNT 10.6 K/uL (4.1-10.2)
[2017-08-20 12:18] LABS: INTER. NORMALIZED RATIO 1.2
[2017-08-20 12:21] LABS: PTT 31.8 SEC (25-37)
[2017-08-20 12:33] LABS: TROP-I INTERPRETATION POSITIVE; TROPONIN-I 0.93 ng/mL (0.0-0.30)
[2017-08-20 12:35] LABS: CHLORIDE 112 MEQ/L (99-109); MAGNESIUM 1.7 mg/dl (1.3-2.7); POTASSIUM 3.1 MEQ/L (3.7-5.4); SODIUM 141 MEQ/L (136-147)
[2017-08-20 12:41] LABS: CREATININE 0.6 MG/DL (0.6-1.3); GFR ESTIMATE (CALCULATED) > 59 mL/min/ (58.99-99999); GLUCOSE 161 mg/dL (70-99); PHOSPHORUS 2.6 mg/dL (2.5-4.9); UREA NITROGEN (BUN) 19 mg/dL (9-23)
[2017-08-20 12:56] LABS: ABS NEUTROPHIL COUNT 8.4; BAND NEUTROPHILS 23.9 % (0-8.0); EOSINOPHIL ABS CT 0; LYMPHOCYTES 3.5 % (15.0-45.0); METAMYELOCYTES 9.7 %; PLAT.SUFFICIENCY ADEQUATE; SEG.NEUTROPHILS 54.9 % (46.0-76.0)
[2017-08-20 18:02] LABS: BASE EXCESS -9.2 mEq/L (-3 to +3); BICARBONATE 14.6 mEq/L (22-26); CARBOXY HGB 1.5 % (0-5); COMMENTS - BLOOD GASES C+; DEVICE VENT; FI02 30 %; MECHANICAL RATE 20 resp/min; METHEMOGLOBIN 1.4 % (0-1.5); MODE AC; PCO2 27 mm Hg (35-45); PEEP 8 CM/H20; PO2 95 mm Hg (80-100); SITE LR ALINE; TIDAL VOLUME 450 ML; TOTAL RESP RATE 28 resp/min; pH 7.34 (7.35-7.45)
[2017-08-20 18:15] LABS: INTER. NORMALIZED RATIO 1.2
[2017-08-20 18:17] LABS: PTT 36.5 SEC (25-37)
[2017-08-20 18:18] LABS: BASOPHIL (%) 0.3 % (0-1); EOSINOPHIL (%) 0.1 % (0-5); HEMATOCRIT 46.5 % (38.0-50.0); HEMOGLOBIN 16.9 G/DL (12.5-16.6); IMMATURE GRANULOCYTE (%) 0.2 % (0.0-0.7); LYMPHOCYTE (%) 4.8 % (15-42); LYMPHOCYTE COUNT 0.5 K/uL (1.0-2.8); MCH 32.7 PG (29.0-34.0); MCHC 36.3 G/DL (30.0-36.0); MCV 89.9 FL (86-99); MONOCYTE (%) 6.1 % (3-12); MONOCYTE COUNT 0.6 K/uL (0-0.8); NEUTROPHIL (%) 88.5 % (45-76); PLATELET COUNT 279 K/uL (156-360); RBC DIS.WIDTH-CV 13.3 % (11.8-14.6); RED BLOOD COUNT 5.17 M/uL (4.00-5.50); WHITE BLOOD COUNT 10.1 K/uL (4.1-10.2)
[2017-08-20 18:37] LABS: TROP-I INTERPRETATION POSITIVE
[2017-08-20 18:37] LABS: CHLORIDE 112 MEQ/L (99-109); CREATININE 0.6 MG/DL (0.6-1.3); GFR ESTIMATE (CALCULATED) > 59 mL/min/ (58.99-99999); MAGNESIUM 1.6 mg/dl (1.3-2.7); PHOSPHORUS 2.5 mg/dL (2.5-4.9); POTASSIUM 2.7 MEQ/L (3.7-5.4); SODIUM 141 MEQ/L (136-147); UREA NITROGEN (BUN) 18 mg/dL (9-23)
[2017-08-20 18:38] LABS: GLUCOSE 105 mg/dL (70-99)
[2017-08-21] VITALS (7 sets, daily range): BP systolic 117–148; BP diastolic 89–118
[2017-08-21 00:22] LABS: BASE EXCESS -8.8 mEq/L (-3 to +3); BICARBONATE 15.1 mEq/L (22-26); CARBOXY HGB 1.5 % (0-5); METHEMOGLOBIN 1.6 % (0-1.5); PCO2 28 mm Hg (35-45); PO2 87 mm Hg (80-100); pH 7.34 (7.35-7.45)
[2017-08-21 00:23] LABS: COMMENTS - BLOOD GASES C+; DEVICE 840; FI02 30 %; MECHANICAL RATE 20 resp/min; MODE AC; PEEP 5 CM/H20; SITE A-LINE; TIDAL VOLUME 450 ML; TOTAL RESP RATE 29 resp/min
[2017-08-21 00:52] LABS: HEMATOCRIT 47.5 % (38.0-50.0); HEMOGLOBIN 17.2 G/DL (12.5-16.6); MCH 32.6 PG (29.0-34.0); MCHC 36.2 G/DL (30.0-36.0); MCV 90.1 FL (86-99); PLATELET COUNT 290 K/uL (156-360); RBC DIS.WIDTH-CV 13.5 % (11.8-14.6); RBC DIS.WIDTH-SD 44.3 % (39-53); RED BLOOD COUNT 5.27 M/uL (4.00-5.50); WHITE BLOOD COUNT 12.3 K/uL (4.1-10.2)
[2017-08-21 00:57] LABS: INTER. NORMALIZED RATIO 1.1
[2017-08-21 00:59] LABS: CHLORIDE 112 mEq/L (99-109); SODIUM 142 mEq/L (136-147)
[2017-08-21 01:00] LABS: PTT 33.9 SEC (25-37)
[2017-08-21 01:01] LABS: GLUCOSE 124 mg/dL (70-99)
[2017-08-21 01:05] LABS: CREATININE 0.8 mg/dL (0.6-1.3); GFR ESTIMATE (CALCULATED) > 59 mL/min/ (58.99-99999); PHOSPHORUS 2.9 mg/dL (2.5-4.9)
[2017-08-21 01:06] LABS: UREA NITROGEN (BUN) 18 mg/dL (9-23)
[2017-08-21 01:10] LABS: MAGNESIUM 2.9 mg/dL (1.3-2.7); POTASSIUM 3.6 mEq/L (3.7-5.4)
[2017-08-21 01:12] LABS: TROP-I INTERPRETATION POSITIVE
[2017-08-21 01:15] LABS: TROPONIN-I 0.66 ng/mL (0.0-0.30)
[2017-08-21 02:06] LABS: ABS NEUTROPHIL COUNT 9.8; ANISOCYTOSIS 1+; ATYPICAL LYMPHOCYTE 0.9 %; BASOPHILS 0.9 %; EOSINOPHIL ABS CT 0; LYMPHOCYTES 7.1 % (15.0-45.0); METAMYELOCYTES 9.7 %; MONOCYTES 1.8 % (0-9.0); PLAT.SUFFICIENCY ADEQUATE; POIKILOCYTOSIS 1+; SEG.NEUTROPHILS 35.4 % (46.0-76.0); SPHEROCYTES 1+
[2017-08-21 02:56] LABS: BAND NEUTROPHILS 44.2 % (0-8.0)
[2017-08-21 06:02] LABS: HEMATOCRIT 48.5 % (38.0-50.0); HEMOGLOBIN 16.7 G/DL (12.5-16.6); MCH 31.5 PG (29.0-34.0); MCHC 34.4 G/DL (30.0-36.0); MCV 91.5 FL (86-99); NRBC (%) 0.2 /100 WBC (0-0); PLATELET COUNT 283 K/uL (156-360); RBC DIS.WIDTH-CV 13.9 % (11.8-14.6); RBC DIS.WIDTH-SD 46.9 % (39-53); WHITE BLOOD COUNT 12.4 K/uL (4.1-10.2)
[2017-08-21 06:32] LABS: CHLORIDE 113 MEQ/L (99-109); CREATININE 0.8 MG/DL (0.6-1.3); GFR ESTIMATE (CALCULATED) > 59 mL/min/ (58.99-99999); GLUCOSE 118 mg/dL (70-99); PHOSPHORUS 3.2 mg/dL (2.5-4.9); POTASSIUM 4.2 MEQ/L (3.7-5.4); SODIUM 142 MEQ/L (136-147); UREA NITROGEN (BUN) 16 mg/dL (9-23)
[2017-08-21 06:37] LABS: MAGNESIUM 2.5 mg/dl (1.3-2.7)
[2017-08-22] VITALS (19 sets, daily range): BP systolic 104–150; BP diastolic 77–112
[2017-08-22 06:57] LABS: HEMATOCRIT 48.3 % (38.0-50.0); MCH 32.5 PG (29.0-34.0); MCHC 35.2 G/DL (30.0-36.0); MCV 92.4 FL (86-99); PLATELET COUNT 232 K/uL (156-360); RBC DIS.WIDTH-CV 14.5 % (11.8-14.6); RBC DIS.WIDTH-SD 49.1 % (39-53); RED BLOOD COUNT 5.23 M/uL (4.00-5.50); WHITE BLOOD COUNT 5.3 K/uL (4.1-10.2)
[2017-08-22 07:14] LABS: ALBUMIN 3.1 G/DL (3.2-4.8); ALKALINE PHOSPHATASE 121 IU/L (3-129); ALT (GPT) 62 IU/L (3-49); AST (GOT) 115 IU/L (2-34); CHLORIDE 115 MEQ/L (99-109); GFR ESTIMATE (CALCULATED) > 59 mL/min/ (58.99-99999); GLUCOSE 129 mg/dL (70-99); POTASSIUM 4.2 MEQ/L (3.7-5.4); SODIUM 145 MEQ/L (136-147); TOTAL BILIRUBIN 0.6 MG/DL (0.0-1.0); UREA NITROGEN (BUN) 15 mg/dL (9-23)
[2017-08-23] VITALS (24 sets, daily range): BP systolic 105–151; BP diastolic 73–104
[2017-08-23 04:41] LABS: HEMATOCRIT 39.4 % (38.0-50.0); HEMOGLOBIN 14.1 G/DL (12.5-16.6); MCH 32.5 PG (29.0-34.0); MCHC 35.8 G/DL (30.0-36.0); MCV 90.8 FL (86-99); PLATELET COUNT 172 K/uL (156-360); RBC DIS.WIDTH-CV 14.4 % (11.8-14.6); RBC DIS.WIDTH-SD 48.3 % (39-53); RED BLOOD COUNT 4.34 M/uL (4.00-5.50)
[2017-08-23 04:49] LABS: ALBUMIN 2.7 g/dL (3.2-4.8); CHLORIDE 113 mEq/L (99-109); SODIUM 145 mEq/L (136-147)
[2017-08-23 04:51] LABS: GLUCOSE 108 mg/dL (70-99); POTASSIUM 2.6 mEq/L (3.7-5.4)
[2017-08-23 04:52] LABS: CHLORIDE 116 mEq/L (99-109); SODIUM 148 mEq/L (136-147); TOTAL PROTEIN 5.9 g/dL (6.4-8.3)
[2017-08-23 04:54] LABS: GLUCOSE 108 mg/dL (70-99)
[2017-08-23 04:55] LABS: CREATININE 0.8 mg/dL (0.6-1.3); GFR ESTIMATE (CALCULATED) > 59 mL/min/ (58.99-99999)
[2017-08-23 04:56] LABS: ALKALINE PHOSPHATASE 87 IU/L (3-129); MAGNESIUM 1.6 mg/dL (1.3-2.7); POTASSIUM 2.7 mEq/L (3.7-5.4); TOTAL BILIRUBIN 0.8 mg/dL (0.0-1.0); UREA NITROGEN (BUN) 12 mg/dL (9-23)
[2017-08-23 04:58] LABS: ALT (GPT) 65 IU/L (3-49); CREATININE 0.8 mg/dL (0.6-1.3); GFR ESTIMATE (CALCULATED) > 59 mL/min/ (58.99-99999)
[2017-08-23 04:59] LABS: UREA NITROGEN (BUN) 12 mg/dL (9-23)
[2017-08-23 05:04] LABS: AST (GOT) 123 IU/L (2-34); PHOSPHORUS 1.5 mg/dL (2.5-4.9)
[2017-08-23 05:31] LABS: ABS NEUTROPHIL COUNT 1.5; ATYPICAL LYMPHOCYTE 10.7 %; EOSINOPHIL ABS CT 0.1; EOSINOPHILS 1.8 % (0-5.0); HEMATOLOGY COMMENT 1 SN; METAMYELOCYTES 7.1 %; MICROCYTOSIS 1+; MYELOCYTES 1.8 %; NUCLEATED RBC'S 0.9; PLAT.SUFFICIENCY ADEQUATE; POIKILOCYTOSIS 1+; POLYCHROMASIA 1+; SEG.NEUTROPHILS 21.4 % (46.0-76.0); TARGET CELLS 1+
[2017-08-23 06:15] LABS: BAND NEUTROPHILS 3.6 % (0-8.0); LYMPHOCYTES 36.6 % (15.0-45.0)
[2017-08-23 21:16] LABS: CHLORIDE 122 MEQ/L (99-109); SODIUM 152 MEQ/L (136-147)
[2017-08-23 21:17] LABS: POTASSIUM 3.9 MEQ/L (3.7-5.4)
[2017-08-23 21:25] LABS: CREATININE 0.8 MG/DL (0.6-1.3); GFR ESTIMATE (CALCULATED) > 59 mL/min/ (58.99-99999); GLUCOSE 135 mg/dL (70-99); UREA NITROGEN (BUN) 10 mg/dL (9-23)
[2017-08-23 21:26] LABS: PHOSPHORUS 1.9 mg/dL (2.5-4.9)
[2017-08-24] VITALS (24 sets, daily range): BP systolic 108–161; BP diastolic 74–114
[2017-08-24 07:05] LABS: HEMATOCRIT 38.6 % (38.0-50.0); HEMOGLOBIN 12.8 G/DL (12.5-16.6); MCH 31.1 PG (29.0-34.0); MCHC 33.2 G/DL (30.0-36.0); MCV 93.9 FL (86-99); NRBC (%) 0.2 /100 WBC (0-0); PLATELET COUNT 143 K/uL (156-360); RED BLOOD COUNT 4.11 M/uL (4.00-5.50); WHITE BLOOD COUNT 10.6 K/uL (4.1-10.2)
[2017-08-24 07:15] LABS: ALBUMIN 2.5 G/DL (3.2-4.8); ALKALINE PHOSPHATASE 93 IU/L (3-129); ALT (GPT) 67 IU/L (3-49); AST (GOT) 136 IU/L (2-34); CHLORIDE 118 MEQ/L (99-109); CREATININE 0.8 MG/DL (0.6-1.3); GFR ESTIMATE (CALCULATED) > 59 mL/min/ (58.99-99999); GLUCOSE 125 mg/dL (70-99); SODIUM 152 MEQ/L (136-147); TOTAL BILIRUBIN 0.5 MG/DL (0.0-1.0); TOTAL PROTEIN 6.1 G/DL (6.4-8.3); UREA NITROGEN (BUN) 9 mg/dL (9-23)
[2017-08-24 07:30] LABS: ABS NEUTROPHIL COUNT 7.1; ATYPICAL LYMPHOCYTE 3.5 %; EOSINOPHIL ABS CT 0.4; EOSINOPHILS 3.5 % (0-5.0); METAMYELOCYTES 2.6 %; MONOCYTES 14.9 % (0-9.0); MYELOCYTES 1.8 %; NUCLEATED RBC'S 0.9; PLAT.SUFFICIENCY ADEQUATE; SEG.NEUTROPHILS 39.5 % (46.0-76.0); SMUDGE CELLS 2.6
[2017-08-24 07:33] LABS: BAND NEUTROPHILS 27.2 % (0-8.0)
[2017-08-24 07:57] LABS: MAGNESIUM 1.9 mg/dl (1.3-2.7); PHOSPHORUS 3.2 mg/dL (2.5-4.9)
[2017-08-25] VITALS (24 sets, daily range): BP systolic 76–181; BP diastolic 45–120
[2017-08-25 05:39] LABS: HEMOGLOBIN 11.9 G/DL (12.5-16.6); MCH 31.7 PG (29.0-34.0); MCHC 33.1 G/DL (30.0-36.0); NRBC (%) 0.3 /100 WBC (0-0); PLATELET COUNT 134 K/uL (156-360); RBC DIS.WIDTH-CV 15.1 % (11.8-14.6); RBC DIS.WIDTH-SD 53.5 % (39-53); RED BLOOD COUNT 3.75 M/uL (4.00-5.50); WHITE BLOOD COUNT 14.4 K/uL (4.1-10.2)
[2017-08-25 06:10] LABS: ALBUMIN 2.5 G/DL (3.2-4.8); ALT (GPT) 95 IU/L (3-49); AST (GOT) 169 IU/L (2-34); CHLORIDE 117 MEQ/L (99-109); CREATININE 0.9 MG/DL (0.6-1.3); GFR ESTIMATE (CALCULATED) > 59 mL/min/ (58.99-99999); GLUCOSE 139 mg/dL (70-99); MAGNESIUM 1.9 mg/dl (1.3-2.7); PHOSPHORUS 2.6 mg/dL (2.5-4.9); POTASSIUM 3.3 MEQ/L (3.7-5.4); SODIUM 153 MEQ/L (136-147); TOTAL BILIRUBIN 0.5 MG/DL (0.0-1.0); TOTAL PROTEIN 6.1 G/DL (6.4-8.3); UREA NITROGEN (BUN) 13 mg/dL (9-23)
[2017-08-25 06:13] LABS: ALKALINE PHOSPHATASE 119 IU/L (3-129)
[2017-08-25 06:46] LABS: ABS NEUTROPHIL COUNT 9.2; BAND NEUTROPHILS 18.4 % (0-8.0); EOSINOPHIL ABS CT 0; LYMPHOCYTES 13.2 % (15.0-45.0); MACROCYTES 1+; METAMYELOCYTES 2.6 %; MONOCYTES 19.3 % (0-9.0); MYELOCYTES 0.9 %; NUCLEATED RBC'S 0.9; PLAT.SUFFICIENCY DECREASED; SEG.NEUTROPHILS 45.6 % (46.0-76.0); SMUDGE CELLS 1.8
[2017-08-26] VITALS (22 sets, daily range): BP systolic 91–165; BP diastolic 53–114
[2017-08-26 06:05] LABS: HEMATOCRIT 31.8 % (38.0-50.0); HEMOGLOBIN 10.7 G/DL (12.5-16.6); MCH 31.8 PG (29.0-34.0); MCHC 33.6 G/DL (30.0-36.0); MCV 94.6 FL (86-99); NRBC (%) 0.2 /100 WBC (0-0); RBC DIS.WIDTH-CV 15.1 % (11.8-14.6); RBC DIS.WIDTH-SD 52.4 % (39-53); RED BLOOD COUNT 3.36 M/uL (4.00-5.50); WHITE BLOOD COUNT 23.3 K/uL (4.1-10.2)
[2017-08-26 06:07] LABS: PLATELET COUNT 214 K/uL (156-360)
[2017-08-26 06:52] LABS: ALBUMIN 2.4 G/DL (3.2-4.8); ALKALINE PHOSPHATASE 108 IU/L (3-129); ALT (GPT) 78 IU/L (3-49); CHLORIDE 114 MEQ/L (99-109); GLUCOSE 115 mg/dL (70-99); POTASSIUM 3.3 MEQ/L (3.7-5.4); SODIUM 155 MEQ/L (136-147)
[2017-08-26 07:00] LABS: AST (GOT) 74 IU/L (2-34); CREATININE 2.1 MG/DL (0.6-1.3); GFR ESTIMATE (CALCULATED) 46 mL/min/ (58.99-99999); TOTAL BILIRUBIN 0.7 MG/DL (0.0-1.0); UREA NITROGEN (BUN) 22 mg/dL (9-23)
[2017-08-26 07:15] LABS: ABS NEUTROPHIL COUNT 17.8; ANISOCYTOSIS 1+; ATYPICAL LYMPHOCYTE 1.8 %; BAND NEUTROPHILS 13.6 % (0-8.0); EOSINOPHIL ABS CT 0.2; EOSINOPHILS 0.9 % (0-5.0); GIANT PLATELETS 1+; LYMPHOCYTES 13.2 % (15.0-45.0); MONOCYTES 7.5 % (0-9.0); PLAT.SUFFICIENCY ADEQUATE; PLATELET CLUMPS PRESENT - PLATELET COUNT APPEARS ADQ.; TARGET CELLS 1+; TOXIC GRANULATION 1+
[2017-08-26 07:38] LABS: CHLORIDE 114 MEQ/L (99-109); GLUCOSE 108 mg/dL (70-99); MAGNESIUM 1.8 mg/dl (1.3-2.7); POTASSIUM 3.2 MEQ/L (3.7-5.4); SODIUM 154 MEQ/L (136-147)
[2017-08-26 07:41] LABS: GFR ESTIMATE (CALCULATED) 48 mL/min/ (58.99-99999); UREA NITROGEN (BUN) 22 mg/dL (9-23)
[2017-08-26 09:46] LABS: CHLORIDE 114 MEQ/L (99-109); GLUCOSE 119 mg/dL (70-99); POTASSIUM 3.3 MEQ/L (3.7-5.4); SODIUM 155 MEQ/L (136-147); UREA NITROGEN (BUN) 25 mg/dL (9-23)
[2017-08-26 09:51] LABS: CREATININE 2.6 MG/DL (0.6-1.3); GFR ESTIMATE (CALCULATED) 36 mL/min/ (58.99-99999)
[2017-08-27] VITALS (17 sets, daily range): BP systolic 91–174; BP diastolic 72–120
[2017-08-27 06:37] LABS: HEMOGLOBIN 10.7 G/DL (12.5-16.6); MCHC 32.4 G/DL (30.0-36.0); MCV 95.7 FL (86-99); NRBC (%) 0.1 /100 WBC (0-0); RBC DIS.WIDTH-CV 15.2 % (11.8-14.6); RBC DIS.WIDTH-SD 53.8 % (39-53); RED BLOOD COUNT 3.45 M/uL (4.00-5.50); WHITE BLOOD COUNT 27.9 K/uL (4.1-10.2)
[2017-08-27 06:40] LABS: PLATELET COUNT 309 K/uL (156-360)
[2017-08-27 07:08] LABS: ALBUMIN 2.1 G/DL (3.2-4.8); ALKALINE PHOSPHATASE 105 IU/L (3-129); ALT (GPT) 48 IU/L (3-49); AST (GOT) 48 IU/L (2-34); CHLORIDE 115 MEQ/L (99-109); GLUCOSE 126 mg/dL (70-99); SODIUM 153 MEQ/L (136-147); TOTAL PROTEIN 5.3 G/DL (6.4-8.3)
[2017-08-27 07:15] LABS: CREATININE 4.5 MG/DL (0.6-1.3); GFR ESTIMATE (CALCULATED) 19 mL/min/ (58.99-99999); TOTAL BILIRUBIN 0.4 MG/DL (0.0-1.0); UREA NITROGEN (BUN) 44 mg/dL (9-23)
[2017-08-27 07:27] LABS: ABS NEUTROPHIL COUNT 24.1; ANISOCYTOSIS 1+; BAND NEUTROPHILS 20.2 % (0-8.0); EOSINOPHIL ABS CT 0.4; EOSINOPHILS 1.3 % (0-5.0); LYMPHOCYTES 4.8 % (15.0-45.0); MONOCYTES 7.5 % (0-9.0); NUCLEATED RBC'S 1.3; PLAT.SUFFICIENCY ADEQUATE; POLYCHROMASIA 2+; SEG.NEUTROPHILS 66.2 % (46.0-76.0)
[2017-08-27 07:53] LABS: CHLORIDE 115 MEQ/L (99-109); GLUCOSE 125 mg/dL (70-99); PHOSPHORUS 3.3 mg/dL (2.5-4.9); SODIUM 152 MEQ/L (136-147)
[2017-08-27 07:54] LABS: CREATININE 4.6 MG/DL (0.6-1.3); GFR ESTIMATE (CALCULATED) 18 mL/min/ (58.99-99999); MAGNESIUM 2.1 mg/dl (1.3-2.7); POTASSIUM 4.1 MEQ/L (3.7-5.4); UREA NITROGEN (BUN) 44 mg/dL (9-23)
[2017-08-27 08:06] LABS: VANCOMYCIN, TROUGH 47.9 MCG/ML (10-20)
== END 2017-08-27 22:49 ==
LOC: EME 07:46 → EDOF 09:03 → 4WEST 09:03 → ENRESERV 09:04 → 4WEST 10:18 → ENRESERV 08-27 12:50 → 4WEST 08-27 17:10 → ENRESERV 08-27 23:07
PROVIDERS: Emergency Medicine; Internal Medicine Critical Care Medicine; Specialist
PROC: 5A12012 Performance of Cardiac Output, Single, Manual (ICD-10-PCS; principal; 2017-08-19)
PROC: 02HV33Z Insertion of Infusion Device into Superior Vena Cava, Percutaneous Approach (ICD-10-PCS; principal; 2017-08-19)
PROC: 5A1955Z Respiratory Ventilation, Greater than 96 Consecutive Hours (ICD-10-PCS; 2017-08-19)
DX: I46.9 Cardiac arrest, cause unspecified (principal); J96.01 Acute respiratory failure with hypoxia; I48.91 Unspecified atrial fibrillation; G40.909 Epilepsy, unspecified, not intractable, without status epilepticus; F17.200 Nicotine dependence, unspecified, uncomplicated; F16.90 Hallucinogen use, unspecified, uncomplicated; I21.3 ST elevation (STEMI) myocardial infarction of unspecified site; I48.92 Unspecified atrial flutter; E87.2 Acidosis; G93.1 Anoxic brain damage, not elsewhere classified; R40.2430 Glasgow coma scale score 3-8, unspecified time; Z91.5 Personal history of self-harm; R40.20 Unspecified coma; F19.90 Other psychoactive substance use, unspecified, uncomplicated; F10.94 Alcohol use, unspecified with alcohol-induced mood disorder; Z66 Do not resuscitate; Z51.5 Encounter for palliative care; Z91.14 Patient's other noncompliance with medication regimen
CPT/HCPCS: 36600; 36620; 70450; 71045; 80048; 80048 91; 80053; 80076; 80202; 81003; 82150; 82803; 82948; 83605; 83690; 83735; 84100; 84484; 84999; 85025; 85025 91; 85027; 85610; 85730; 86850; 86900; 86901; 87070; 87205; 87641; 90832; 93005; 94002; 94003; 94640; 94640 76; 94667; 94668; 94760; 95819; 99202; 99281; 99285; C1751; G0480; J0282; J1650; J1652; J1815; J1953; J2060; J2270; J2310; J2543; J2704; J3370; J3475; J3480; J7030; J7040; J7050; J7120